=== PATIENT | female | born 1960 | race Caucasian/White ===

== ENCOUNTER 2021-04-10 10:56 | Emergency (ER) | payer BC, SELFPAY ==
--- NOTE | ~2021-04-10 | XR_ITS ---
EXAMINATION: XR chest 2V DATE: 04/10/2021 11:21 INDICATION: Cough TECHNIQUE: PA and lateral views of the chest are obtained. COMPARISON: 05/11/2019 FINDINGS: The lungs are free of acute opacities. There is no pleural effusion or pneumothorax. The ca rdiomediastinal silhouette is normal. There is severe thoracic spondylosis. Surgical clips are noted in the left axilla. IMPRESSION: 1. No acute cardiopulmonary abnormality. Reviewed, dictated and finalized at location B.
[2021-04-10 11:04] VITALS: BP 152/79; PULSE 79; RESP 16; TEMP 36.4; O2SAT 97
--- NOTE | 2021-04-10 11:06 | ED.URI ---
HPI - URI/Sore Throat General Chief Complaint: Upper Respiratory Infection Stated Complaint: body aches/cough/runny nose/fatigue Time Seen by Provider: 04/10/21 11:06 Source: patient and RN notes reviewed Mode of arrival: ambulatory Limitations: no limitations History of Present Illness HPI Narrative: 60-year-old female with history of diabetes, COPD presents with concern for 3-week history of cough, nasal congestion, body aches, fatigue. Reports productive cough with clear and sometimes yellow sputum. She reports she has had a negative Covid test. She reports conversational shortness of breath. She denies fever. Reports taking multiple [id number] medication without relief. MD elicited complaint: cough Related Data Home Medications Medication Instructions Recorded Confirmed atorvastatin 20 mg DAILY 05/11/19 04/10/21 glimepiride 2 mg DAILY 05/11/19 04/10/21 sitagliptin [Januvia] 100 mg DAILY 05/11/19 04/10/21 venlafaxine 150 mg PO DAILY 05/11/19 04/10/21 Allergies Allergy/AdvReac Type Severity Reaction Status Date / Time No Known Allergies Allergy Unverified 07/10/14 00:14 Review of Systems Review of Systems: CONSTITUTIONAL: Reports fatigue, malaise sweats. Denies fever. EYES: Denies visual changes, redness, or discharge. ENT: Reports rhinorrhea, congestion, sinus pain. Denies otalgia and sore throat. CARDIOVASCULAR: Denies chest pain, palpitations, or edema. RESPIRATORY: Reports cough, dyspnea. GASTROINTESTINAL: Denies abdominal pain, nausea, vomiting, diarrhea SKIN: Denies rash or itching. MUSCULOSKELETAL: Reports myalgia. NEUROLOGIC: Denies headache. All systems reviewed & are unremarkable except as noted in HPI and below PMFSH Comments At time of signature, agree with nursing past medical, surgical, social and family history. There is no relevant family history pertinent to the presenting complaint Exam Narrative: GENERAL: Well-appearing, well-nourished, and in no acute distress. HEAD: Normocephalic EYES: PERRLA, conjunctivae clear ENT: Nares clear, turbinates edematous and erythematous, clear discharge. Mucous membranes moist. TM pearly harrison with sharp light reflex bilaterally; no tragal tenderness. Oropharynx not erythematous without lesions. Tonsils not enlarged and without exudate, no drooling, no hoarseness, no trismus, uvula midline. NECK: Supple. No lymphadenopathy CHEST: Clear to auscultation, breath sounds equal, aeration fair, scattered mild wheeze. No rhonchi, rales, or stridor. No respiratory distress, speaks in full sentences. HEART: Regular rate and rhythm. No murmur heard. SKIN: Warm, dry, no rash. NEURO: Alert and oriented x3. PSYCH: Normal mood and affect Course Course Emergency Course: Patient is aware of diagnosis, understands and agrees to treatment plan. Anticipatory guidance given. Patient agrees to follow-up as directed and is aware of reasons to seek care at the emergency department. Portions of this record may have been created with voice recognition software Vital Signs Vital signs: Vital Signs Temperature 97.5 F L 04/10/21 11:04 Pulse Rate 79 04/10/21 11:04 Respiratory Rate 16 04/10/21 11:04 Blood Pressure 152/79 H 04/10/21 11:04 Pulse Oximetry 97 04/10/21 11:04 Temperature 97.5 F L 04/10/21 11:04 Pulse Rate 79 04/10/21 11:04 Respiratory Rate 16 04/10/21 11:04 Blood Pressure 152/79 H 04/10/21 11:04 Pulse Oximetry 97 04/10/21 11:04 Reviewed. MDM - URI/Sore Throat MDM Narrative Medical decision making narrative: Differential diagnosis considered: Whelan virus, strep pharyngitis, allergic rhinitis, upper respiratory tract infection, sinusitis, rhinosinusitis, nasopharyngitis. viral pharyngitis, otitis media, otitis externa, pneumonia, bronchitis, viral cough syndrome, viral syndrome, and influenza. Exam findings show no acute concerns or changes; patient is non-toxic appearing and is in no distress. Patient is appropriate for outpatient
== END 2021-04-10 11:38 | disposition home or self-care (01) ==
PROVIDERS: Emergency Provider Nurse Practitioner; PCP Internal Medicine
DX: J32.9 Chronic sinusitis, unspecified (principal); J40 Bronchitis, not specified as acute or chronic; I25.10 Atherosclerotic heart disease of native coronary artery without angina pectoris; E78.00 Pure hypercholesterolemia, unspecified; I10 Essential (primary) hypertension
CPT/HCPCS: 71046; 99213; G0463

== ENCOUNTER 2021-07-06 09:42 | Emergency (ER) | payer OTHER, BC, SELFPAY ==
--- NOTE | ~2021-07-06 | XR_ITS ---
EXAMINATION: XR wrist RT min 3V DATE: 07/06/2021 09:58 INDICATION: Right wrist pain. TECHNIQUE: 4 views of right wrist were obtained. COMPARISON: None. FINDINGS: Bone alignment is normal. No fracture. There is mild osteoarthritis of triscaphe joint, fir st carpometacarpal joint, first metacarpophalangeal joint, and some of the interphalangeal joints. Th ere are loose bodies in the volar aspect of the radiocarpal compartment. There is a periarticular alexandra cification at third metacarpophalangeal joint. IMPRESSION: 1. Mild polyarticular osteoarthritis. 2. Loose bodies in the volar aspect of the radiocarpal compartment. Reviewed, dictated and finalized at location A. UNLOADER
[2021-07-06 09:48] VITALS: BP 137/73; PULSE 80; RESP 16; TEMP 36.1; O2SAT 100
--- NOTE | 2021-07-06 10:16 | ED.UPPEXIN ---
HPI - Extremity Injury (Upper) General Chief Complaint: Extremity Injury, Upper Stated Complaint: wrist inj Time Seen by Provider: 07/06/21 09:54 Source: patient Mode of arrival: ambulatory Limitations: no limitations History of Present Illness HPI narrative: This is a 61 year old female that presents to the ER for right wrist pain x 3 days. 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 Since she has had pain in the area. Also notes swelling. Reports today she started on note some redness to the area as well. Reports decreased ROM due to pain. Denies numbness. Related Data Home Medications Medication Instructions Recorded Confirmed atorvastatin 20 mg DAILY 05/11/19 04/10/21 glimepiride 2 mg DAILY 05/11/19 04/10/21 sitagliptin [Januvia] 100 mg DAILY 05/11/19 04/10/21 venlafaxine 150 mg PO DAILY 05/11/19 04/10/21 Allergies Allergy/AdvReac Type Severity Reaction Status Date / Time No Known Allergies Allergy Unverified 07/10/14 00:14 Review of Systems Review of Systems: CONSTITUTIONAL: Denies fever SKIN: Reports redness MUSCULOSKELETAL: Reports joint pain, and myalgia. NEUROLOGIC: Denies numbness All systems reviewed & are unremarkable except as noted in HPI and below PMFSH Past Medical History Medical History (Updated 07/06/21 @ 12:59 by Emmy Keenan PA-C) Diabetes Dyslipidemia HTN (hypertension) Social History Social History (Updated 07/06/21 @ 10:19 by Emmy Keenan PA-C) Substance use: never Exam Narrative: GENERAL: Well-appearing, well-nourished, and in no acute distress. HEAD: Normocephalic, atraumatic. EYES: EOMI. CHEST: No respiratory distress. HEART: Regular rate EXTREMITIES: Decreased active ROM in the right wrist due to pain. No edema. Mild redness noted to the volar aspect of the wrist. Normal radial pulses. Normal sensation SKIN: Warm, dry, no rash. NEURO: No focal deficits. Alert and oriented x3. PSYCH: Normal mood and affect Course Consultations Consultation #1: Spoke with Dr. Connolly about patient work-up. Will be treated as wrist sprain with a possible inflammatory arthritis such as gout. Date: 07/06/21 Time: 12:36 Vital Signs Vital signs: Vital Signs Temperature 97 F L 07/06/21 09:48 Pulse Rate 80 07/06/21 09:48 Respiratory Rate 16 07/06/21 09:48 Blood Pressure 137/73 07/06/21 09:48 Pulse Oximetry 100 07/06/21 09:48 Temperature 97 F L 07/06/21 09:48 Pulse Rate 78 07/06/21 11:46 Respiratory Rate 16 07/06/21 11:46 Blood Pressure 134/75 07/06/21 11:46 Pulse Oximetry 100 07/06/21 11:46 MDM - Extremity Injury (Upper) MDM Narrative Medical decision making narrative: Patient presents to the emergency department for right wrist pain after an injury a couple of days ago. She is afebrile and nontoxic-appearing. She is neurovascularly intact. CBC is without leukocytosis. ESR is not elevated. CRP is elevated to 4.8. 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 Shows loose bodies in the volar aspect of the radiocarpal compartment. Patient was updated on case findings. Spoke with Dr. Connolly about patient work-up. Will be treated as wrist sprain with a possible inflammatory arthritis such as gout. Patient will be started on anti-inflammatories and colchicine. He will follow up in clinic. Patient is stable and felt appropriate for further outpatient evaluation. There is no evidence for septic joint today. Patient was given warnings to return to the ER Lab Data Attestation: I reviewed the patient's lab results. Result diagrams: 07/06/21 10:24 07/06/21 10:24 Labs: Lab Results 07/06/21 07/06/21 Range/Units 10:24 10:24 WBC 9.5 (4.5-10.0) K/mm3 RBC 5.05 (4.2-5.4) M/mm3 Hgb 15.3 H (12.0-15.0) g/dL Hct 44.5 (37.0-47.0) % MCV 88.1 (80-100) fl MCH 30.3 (26-34) pg MCHC 34.4 (32-36) g/dl RDW 14.0 (11.5-14.5) % Plt
[2021-07-06] MEDS: traMADol HCL (*CRX) 50 MG TABLET PO (10:18)
[2021-07-06 10:33] LABS: Basophils Percent Auto 0.3 % (0.2-1.2); Eosinophils Absolute Auto 0.1 K/mm3 (0-0.3); Eosinophils Percent Auto 0.5 % (0-4.4); Hematocrit 44.5 % (37.0-47.0); Hemoglobin 15.3 g/dL (12.0-15.0); Immature Granulocyte Absolute 0.04 K/mm3 (0.00-0.031); Immature Granulocyte Percent A 0.4 % (0-0.5); Lymphocytes Absolute Auto 1.71 K/mm3 (0.9-3.2); Lymphocytes Percent Auto 18.1 % (18.3-44.2); Mean Corpuscular HGB Conc 34.4 g/dl (32-36); Mean Corpuscular Hemoglobin 30.3 pg (26-34); Mean Corpuscular Volume 88.1 fl (80-100); Mean Platelet Volume 11.4 fl (7.4-10.4); Monocytes Absolute Auto 0.8 K/mm3 (0.1-0.6); Monocytes Percent Auto 8.1 % (2.6-8.5); Neutrophils Absolute Auto 6.9 K/mm3 (1.3-6.7); Neutrophils Percent Auto 72.6 % (45.5-73.1); Platelet Count Result 189 k/mm3 (150-375); Red Blood Count 5.05 M/mm3 (4.2-5.4); White Blood Count 9.5 K/mm3 (4.5-10.0)
[2021-07-06 10:49] LABS: Anion Gap 8 mmol/L (8-16); Blood Urea Nitrogen 19 mg/dL (7-17); CRP 4.8 mg/dL (<1.0); Calcium 9.5 mg/dL (8.4-10.2); Carbon Dioxide 22 mmol/L (22-30); Chloride 106 mmol/L (98-107); Estimated CRCL calculation 79 ml/min; Estimated Glomerular Filt Rate > 60; Glucose 278 mg/dL (65-110); Sodium 136 mmol/L (137-145); Uric Acid 4.5 mg/dL (2.5-7.5)
[2021-07-06 11:46] VITALS: BP 134/75; PULSE 78; RESP 16; O2SAT 100
--- NOTE | 2021-07-06 11:46 | PC.NURSE ---
Pt waiting for results from provider.
[2021-07-06 12:00] LABS: Erythrocyte Sedimentation Rate 17 mm/hr (0-20)
--- NOTE | 2021-07-06 12:09 | PC.NURSE ---
TAE campbell updated on lab results.
--- NOTE | 2021-07-06 12:15 | PC.NURSE ---
Provider at bedside.
[2021-07-06] MEDS: KETOROLAC (*BKC) 60 MG/2 ML VIAL IM (12:36)
--- NOTE | 2021-07-06 13:03 | PC.NURSE ---
Awaiting meds from pharmacy to ar.
[2021-07-06 13:16] VITALS: BP 153/100; PULSE 82; RESP 17; O2SAT 92
[2021-07-06] MEDS: COLCHICINE 0.6 MG TABLET 1.2 MG PO (13:19)
[2021-07-06 13:21] VITALS: BP 149/78; PULSE 75; RESP 17; O2SAT 100
== END 2021-07-06 13:22 | disposition home or self-care (01) ==
PROVIDERS: Physician Assistant; Emergency Provider Family Medicine; PCP Internal Medicine
DX: S63.501A Unspecified sprain of right wrist, initial encounter (principal); S66.911A Strain of unspecified muscle, fascia and tendon at wrist and hand level, right hand, initial encounter; M19.031 Primary osteoarthritis, right wrist; E78.5 Hyperlipidemia, unspecified; E11.9 Type 2 diabetes mellitus without complications; I10 Essential (primary) hypertension; Z79.84 Long term (current) use of oral hypoglycemic drugs; X50.9XXA Other and unspecified overexertion or strenuous movements or postures, initial encounter
CPT/HCPCS: 36415; 73110; 80048; 84550; 85025; 85652; 86140; 96372; 99283; A9270; J1885

== ENCOUNTER 2022-12-26 17:04 | Emergency (ER) | payer BC, SELFPAY ==
--- NOTE | ~2022-12-26 | XR_ITS ---
XR wrist LT min 3V DATE: 12/26/2022 18:01 INDICATION: Pain, swelling. No known injury. TECHNIQUE: 4 views COMPARISON: None FINDINGS: There is osteopenia. No fracture, dislocation, periosteal reaction or bone destruction is detected. IMPRESSION: No fracture or dislocation Reviewed, dictated and finalized at location A. IMPRESSION: No fracture or dislocation
[2022-12-26 17:08] VITALS: BP 133/74; PULSE 68; RESP 18; TEMP 36.5; O2SAT 96
--- NOTE | 2022-12-26 18:48 | ED.UPPEXIN ---
HPI - Extremity Injury (Upper) General Chief Complaint: Extremity Injury, Upper Stated Complaint: left wrist pain Time Seen by Provider: 12/26/22 17:49 Source: patient Mode of arrival: ambulatory Limitations: no limitations History of Present Illness HPI narrative: Patient is a 62 y/o female who presents to the ED with c/o L wrist pain. Patient reports having pain in her left wrist, worst on the ventral surface, for the last 2-3 days. She states pain became worse last night into today. Worse when she woke up this morning. She states she has had similar pain in the past, but not this severe. She has not tried anything for the pain. She denies any injury. She has noticed some swelling to the ventral surface of her wrist. 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 Denies any numbness, tingling, paresthesias. Related Data Home Medications Medication Instructions Recorded Confirmed atorvastatin 20 mg tablet 20 mg DAILY 05/11/19 04/10/21 glimepiride 1 mg tablet 2 mg DAILY 05/11/19 04/10/21 sitagliptin phosphate 100 mg 100 mg DAILY 05/11/19 04/10/21 tablet (Januvia) venlafaxine 150 mg 150 mg PO DAILY 05/11/19 04/10/21 capsule,extended release 24 hr Allergies Allergy/AdvReac Type Severity Reaction Status Date / Time No Known Allergies Allergy Verified 12/26/22 17:05 Review of Systems Review of Systems: CONSTITUTIONAL: Denies fever, chills, or sweats. MUSCULOSKELETAL: See HPI. NEUROLOGIC: See HPI. All systems reviewed & are unremarkable except as noted in HPI and below PMFSH Past Medical History Medical History (Updated 12/26/22 @ 18:49 by Preethi Colbert PA-C) Diabetes Dyslipidemia HTN (hypertension) Social History Social History (Updated 07/06/21 @ 10:19 by Emmy Keenan PA-C) Substance use: never Exam Narrative: GENERAL: Appears older than stated age, obese with BMI of 34.9, non-toxic, in no acute distress. HEAD: Normocephalic, atraumatic. NECK: Supple. No adenopathy, no masses. RESPIRATORY: Airway patent, respirations nonlabored. CARDIOVASCULAR: Regular rate and rhythm without murmurs, rubs, or gallops. Radial pulses 2+ and equal bilaterally. MUSCULOSKELETAL: Limited range of motion of left wrist due to pain. Tenderness to palpation along distal radius and ulna on ventral surface. Increased tenderness with carpal compression testing. Unable to perform Tinel's testing due to pain. Sensation intact. No paresthesias. SKIN: Warm, dry, normal color. No rashes. NEURO: A&O X3. Speech clear. Cranial nerves II-XII grossly intact. Steady gait. No ataxic movements. PSYCHIATRIC: Appropriate mood and affect. Normal interaction. Course Vital Signs Vital signs: Vital Signs Temperature 97.7 F 12/26/22 17:08 Pulse Rate 68 12/26/22 17:08 Respiratory Rate 18 12/26/22 17:08 Blood Pressure 133/74 12/26/22 17:08 Pulse Oximetry 96 12/26/22 17:08 Oxygen Delivery Room Air 12/26/22 17:08 Temperature 97.7 F 12/26/22 17:08 Pulse Rate 68 12/26/22 17:08 Respiratory Rate 18 12/26/22 17:08 Blood Pressure 133/74 12/26/22 17:08 Pulse Oximetry 96 12/26/22 17:08 Oxygen Delivery Room Air 12/26/22 17:08 MDM - Extremity Injury (Upper) MDM Narrative Medical decision making narrative: Patient presented to ED with several day history of atraumatic left wrist pain. Vitals stable. No signs of neurovascular compromise. Sensation intact. No signs of compartment syndrome. X-ray of left wrist negative for any acute abnormality. Exam consistent with carpal tunnel syndrome. Discussed diagnosis, obtaining cock-up wrist splint, and utilizing anti-inflammatories. Patient had not tried anything for pain prior to arrival. Will provide patient with orthopedic information for follow-up if needed. Patient agrees with plan. Given return precautions. Discharged in stable condition. Differential Diagnosis Differential diagnosis: Likely sprain and strain of wrist, fracture of wr
[2022-12-26] MEDS: KETOROLAC 30 MG/ML VIAL (*BKC) IM (19:01)
[2022-12-26] MEDS: ACETAMINOPHEN 325 MG TABLET 650 MG PO (19:02)
== END 2022-12-26 19:08 | disposition home or self-care (01) ==
PROVIDERS: Emergency Provider Physician Assistant; PCP Internal Medicine
DX: G56.02 Carpal tunnel syndrome, left upper limb (principal); I10 Essential (primary) hypertension; E11.9 Type 2 diabetes mellitus without complications; E78.5 Hyperlipidemia, unspecified; Z79.84 Long term (current) use of oral hypoglycemic drugs
CPT/HCPCS: 73110; 96372; 99283; A9270; J1885

== ENCOUNTER 2023-04-11 14:07 | Outpatient (CLI) | payer BC, SELFPAY ==
[2023-04-11 20:07] LABS: Basophils Percent Auto 0.5 % (0.2-1.2); Eosinophils Absolute Auto 0.1 K/mm3 (0-0.3); Eosinophils Percent Auto 0.8 % (0-4.4); Hematocrit 47.4 % (37.0-47.0); Hemoglobin 15.9 g/dL (12.0-15.0); Immature Granulocyte Absolute 0.03 K/mm3 (0.00-0.031); Immature Granulocyte Percent A 0.3 % (0-0.5); Lymphocytes Absolute Auto 2.51 K/mm3 (0.9-3.2); Lymphocytes Percent Auto 28.7 % (18.3-44.2); Mean Corpuscular HGB Conc 33.5 g/dl (32-36); Mean Corpuscular Volume 89.4 fl (80-100); Mean Platelet Volume 11.4 fl (7.4-10.4); Monocytes Absolute Auto 0.7 K/mm3 (0.1-0.6); Monocytes Percent Auto 7.9 % (2.6-8.5); Neutrophils Absolute Auto 5.4 K/mm3 (1.3-6.7); Neutrophils Percent Auto 61.8 % (45.5-73.1); Platelet Count Result 183 k/mm3 (150-375); Red Cell Distribution Width 12.8 % (11.5-14.5); White Blood Count 8.7 K/mm3 (4.5-10.0)
[2023-04-11 21:06] LABS: Alanine Aminotransferase 26 U/L (6-35); Albumin Level 4.5 g/dL (3.5-5.1); Alkaline Phosphatase 83 U/L (38-126); Anion Gap 9 mmol/L (8-16); Aspartate Amino Transferase 36 U/L (14-36); Bilirubin,Total 0.7 mg/dL (0.2-1.3); Blood Urea Nitrogen 13 mg/dL (7-17); Calcium 9.7 mg/dL (8.4-10.2); Carbon Dioxide 28 mmol/L (22-30); Chloride 100 mmol/L (98-107); Cholesterol 315 mg/dL (0-200); Estimated Glomerular Filt Rate > 60; Glucose 241 mg/dL (65-110); HDL Direct 47 mg/dL; Potassium 3.9 mmol/L (3.4-5.0); Sodium 137 mmol/L (137-145); Triglycerides 305 mg/dL (<150)
[2023-04-11 21:17] LABS: LDL Cholesterol Direct 186 mg/dL
[2023-04-11 21:52] LABS: Hemoglobin A1C 11.3 % (<5.7)
[2023-04-11 22:30] LABS: MALB Creatinine Ratio 750.3 mg/g (0-30); Microalbumin Urine Random 877.9 mg/L (0-16.7)
[2023-04-13 13:04] LABS: Apolipoprotein B 180 mg/dL (<90)
== END 2023-04-11 14:08 | disposition home or self-care (01) ==
LOC: ANHGOSHLAB 14:08
PROVIDERS: PCP Internal Medicine; Visit Provider Internal Medicine
DX: E11.9 Type 2 diabetes mellitus without complications (principal)
CPT/HCPCS: 36415; 80053; 80061; 82043; 82172; 83036; 85025

== ENCOUNTER 2023-05-02 08:30 | Outpatient (RCR) | payer BC, SELFPAY ==
[2023-04-22 15:04] VITALS: BMI 34.7
[2023-05-02 08:30] VITALS: BMI 33.9
[2023-05-02 09:50] VITALS: BMI 33.9
== END 2023-07-11 08:53 | disposition home or self-care (01) ==
LOC: ANHDMC 08:30
PROVIDERS: PCP Internal Medicine; Visit Provider Internal Medicine
DX: E11.9 Type 2 diabetes mellitus without complications (principal); Z71.3 Dietary counseling and surveillance
CPT/HCPCS: 97802; 97803

== ENCOUNTER 2023-07-18 12:33 | Outpatient (CLI) | payer BC, SELFPAY ==
[2023-07-18 20:46] LABS: Alanine Aminotransferase 23 U/L (6-35); Albumin Level 4.6 g/dL (3.5-5.1); Alkaline Phosphatase 68 U/L (38-126); Anion Gap 7 mmol/L (8-16); Aspartate Amino Transferase 35 U/L (14-36); Bilirubin,Total 0.4 mg/dL (0.2-1.3); Blood Urea Nitrogen 16 mg/dL (7-17); Calcium 9.8 mg/dL (8.4-10.2); Carbon Dioxide 30 mmol/L (22-30); Chloride 103 mmol/L (98-107); Estimated Glomerular Filt Rate > 60; Glucose 102 mg/dL (65-110); Potassium 3.8 mmol/L (3.4-5.0); Sodium 140 mmol/L (137-145)
[2023-07-18 22:03] LABS: Hemoglobin A1C 7.1 % (<5.7)
== END 2023-07-18 12:34 | disposition home or self-care (01) ==
LOC: ANHGOSHLAB 12:35
PROVIDERS: PCP Internal Medicine; Visit Provider Internal Medicine
DX: G25.81 Restless legs syndrome (principal); E11.9 Type 2 diabetes mellitus without complications
CPT/HCPCS: 36415; 80053; 82728; 83036

== ENCOUNTER 2023-10-24 11:05 | Outpatient (CLI) | payer BC, SELFPAY ==
[2023-10-24 13:21] LABS: Basophils Percent Auto 0.4 % (0.2-1.2); Eosinophils Absolute Auto 0.1 K/mm3 (0-0.3); Eosinophils Percent Auto 0.8 % (0-4.4); Hematocrit 41.9 % (37.0-47.0); Hemoglobin 13.9 g/dL (12.0-15.0); Immature Granulocyte Absolute 0.07 K/mm3 (0.00-0.031); Immature Granulocyte Percent A 0.8 % (0-0.5); Lymphocytes Absolute Auto 2.52 K/mm3 (0.9-3.2); Lymphocytes Percent Auto 30.4 % (18.3-44.2); Mean Corpuscular HGB Conc 33.2 g/dl (32-36); Mean Corpuscular Hemoglobin 30.6 pg (26-34); Mean Corpuscular Volume 92.3 fl (80-100); Mean Platelet Volume 11.7 fl (7.4-10.4); Monocytes Absolute Auto 0.6 K/mm3 (0.1-0.6); Monocytes Percent Auto 6.9 % (2.6-8.5); Neutrophils Percent Auto 60.7 % (45.5-73.1); Platelet Count Result 167 k/mm3 (150-375); Red Blood Count 4.54 M/mm3 (4.2-5.4); Red Cell Distribution Width 13.7 % (11.5-14.5); White Blood Count 8.3 K/mm3 (4.5-10.0)
[2023-10-24 13:36] LABS: Alanine Aminotransferase 18 U/L (6-35); Albumin Level 4.5 g/dL (3.5-5.1); Alkaline Phosphatase 59 U/L (38-126); Anion Gap 5 mmol/L (4-12); Aspartate Amino Transferase 38 U/L (14-36); Bilirubin,Total 0.4 mg/dL (0.2-1.3); Blood Urea Nitrogen 17 mg/dL (7-17); Calcium 9.4 mg/dL (8.4-10.2); Carbon Dioxide 32 mmol/L (22-30); Chloride 105 mmol/L (98-107); Cholesterol 202 mg/dL (0-200); Estimated Glomerular Filt Rate > 60; Glucose 140 mg/dL (65-110); HDL Direct 47 mg/dL; Potassium 4.3 mmol/L (3.4-5.0); Sodium 142 mmol/L (137-145); Triglycerides 180 mg/dL (<150)
[2023-10-24 13:47] LABS: LDL Cholesterol Direct 127 mg/dL
[2023-10-24 14:04] LABS: Creatinine Urine 128.2 mg/dL
[2023-10-24 14:12] LABS: MALB Creatinine Ratio 105.1 mg/g (0-30); Microalbumin Urine Random 134.7 mg/L (0-16.7)
== END 2023-10-24 11:06 | disposition home or self-care (01) ==
PROVIDERS: PCP Internal Medicine; Visit Provider Internal Medicine
DX: E78.5 Hyperlipidemia, unspecified (principal); E11.65 Type 2 diabetes mellitus with hyperglycemia
CPT/HCPCS: 36415; 80053; 80061; 82043; 83036; 85025

== ENCOUNTER 2024-04-27 11:33 | Outpatient (CLI) | payer BC, SELFPAY ==
[2024-04-27 18:56] LABS: Basophils Percent Auto 0.6 % (0.2-1.2); Eosinophils Absolute Auto 0.1 K/mm3 (0-0.3); Eosinophils Percent Auto 1.3 % (0-4.4); Hematocrit 41.5 % (37.0-47.0); Hemoglobin 13.5 g/dL (12.0-15.0); Immature Granulocyte Absolute 0.02 K/mm3 (0.00-0.031); Immature Granulocyte Percent A 0.3 % (0-0.5); Lymphocytes Absolute Auto 2.19 K/mm3 (0.9-3.2); Lymphocytes Percent Auto 35.5 % (18.3-44.2); Mean Corpuscular HGB Conc 32.5 g/dl (32-36); Mean Corpuscular Hemoglobin 30.1 pg (26-34); Mean Corpuscular Volume 92.6 fl (80-100); Mean Platelet Volume 11.2 fl (7.4-10.4); Monocytes Absolute Auto 0.6 K/mm3 (0.1-0.6); Monocytes Percent Auto 10.4 % (2.6-8.5); Neutrophils Absolute Auto 3.2 K/mm3 (1.3-6.7); Neutrophils Percent Auto 51.9 % (45.5-73.1); Platelet Count Result 190 k/mm3 (150-375); Red Blood Count 4.48 M/mm3 (4.2-5.4); Red Cell Distribution Width 13.3 % (11.5-14.5); White Blood Count 6.2 K/mm3 (4.5-10.0)
[2024-04-27 19:00] LABS: Alanine Aminotransferase 22 U/L (6-35); Albumin Level 4.4 g/dL (3.5-5.1); Alkaline Phosphatase 69 U/L (38-126); Anion Gap 3 mmol/L (4-12); Aspartate Amino Transferase 28 U/L (14-36); Bilirubin,Total 0.6 mg/dL (0.2-1.3); Blood Urea Nitrogen 16 mg/dL (7-17); Calcium 9.3 mg/dL (8.4-10.2); Carbon Dioxide 31 mmol/L (22-30); Chloride 105 mmol/L (98-107); Cholesterol 235 mg/dL (0-200); Estimated Glomerular Filt Rate > 60; Glucose 115 mg/dL (65-110); HDL Direct 49 mg/dL; Potassium 4.4 mmol/L (3.4-5.0); Sodium 139 mmol/L (137-145); Triglycerides 225 mg/dL (<150)
[2024-04-27 19:11] LABS: LDL Cholesterol Direct 129 mg/dL
[2024-04-27 19:17] LABS: Creatinine Urine 154.4 mg/dL
[2024-04-27 19:21] LABS: MALB Creatinine Ratio 66.5 mg/g (0-30); Microalbumin Urine Random 102.7 mg/L (0-16.7)
[2024-04-27 19:51] LABS: Hemoglobin A1C 6.9 % (<5.7)
== END 2024-04-27 11:34 | disposition home or self-care (01) ==
LOC: ANHGOSHLAB 11:34
PROVIDERS: PCP Internal Medicine; Visit Provider Internal Medicine
DX: E78.5 Hyperlipidemia, unspecified (principal); E11.9 Type 2 diabetes mellitus without complications; R80.9 Proteinuria, unspecified
CPT/HCPCS: 36415; 80053; 80061; 82043; 82172; 83036; 85025

== ENCOUNTER 2024-09-14 09:12 | Outpatient (CLI) | payer BC, SELFPAY ==
--- NOTE | ~2024-09-14 | MM_ITS ---
EXAMINATION: MM screening cristopher BI w papito HISTORY: Screening TECHNIQUE: Craniocaudal and mediolateral oblique 3-D tomosynthesis images were obtained and synthetic 2-D images were generated. CAD analysis was submitted and interpreted. COMPARISON: No prior mammogram is available for comparison at this institution. BREAST PARENCHYMAL COMPOSITION: Dense: The breasts are heterogeneously dense, which may obscure small masses FINDINGS: There is no evidence of suspicious mass, calcification, or architectural distortion to sugg est malignancy in either breast. There has been no suspicious interval change. IMPRESSION: 1. No mammographic evidence of malignancy. 2. Recommend routine screening mammography in one year. BI-RADS Category 1: Negative Reviewed, dictated and finalized at location A.
--- OUTSIDE RECORDS SUMMARY | 2024-09-14 09:30 | XMS_ITS | Clinical Summary ---
Author Organization [facility] Address [address] [place] [address] Care Team Providers Care [place] Captain Name Role Phone Tiago Leblanc MD Unavailable [phone] Rusty Soares MD PhD Unavailable Rusty Bentley DO Primary Care Provider [phone] Allergies No known active allergies Medications venlafaxine XR (EFFEXOR-XR) 150 mg 24 hr capsuleIndicati ons:Anxiety with Depression Take 1 capsule (150 mg total) by mouth every morning 8 Active glimepiride (AMARYL) 2 mg tabletIndicatio ns:type 2 diabetes mellitus TAKE 1 TABLET (2 MG TOTAL) BY MOUTH 2 (TWO) TIMES A DAY 180 tablet 1 1 Active atorvastatin (LIPITOR) 20 mg tablet TAKE 1 TABLET BY MOUTH EVERY DAY 90 tablet 1 1 Active Additional Information Patient taking differently: Every morning, Reported on 07/17/2024 bisacodyl EC (DULCOLAX EC) 5 mg EC tabletIndicatio ns:constipation Take 2 tablets with 8oz glass of water as directed per prep instructions. 2 tablet 1 Active albuterol 2.5 mg /3 mL (0.083 %) nebulizer solution 1 Active metFORMIN (GLUCOPHAGE) 1,000 mg tablet TAKE 1 TABLET BY MOUTH TWICE A DAY 180 tablet 1 Active Farxiga 10 mg tablet TAKE 1 TABLET BY MOUTH EVERY DAY 90 tablet 2 Active Januvia 100 mg tablet TAKE 1 TABLET BY MOUTH EVERY DAY 90 tablet 1 2 Active albuterol HFA (PROVENTIL HFA,VENTOLIN HFA,PROAIR HFA) 90 mcg/actuation inhaler INHALE 2 PUFFS EVERY 4 HOURS NEEDED FOR WHEEZING 6.7 each 3 2 Active clindamycin (CLEOCIN T) 1 % lotion Apply topically 2 (two) times a day To affected area in the groin 60 mL 2 3 Active losartan (COZAAR) 25 mg tablet Take 1 tablet (25 mg total) by mouth daily 3 Active rosuvastatin (CRESTOR) 10 mg tablet Take 1 tablet (10 mg total) by mouth daily 3 Active Trulicity 3 mg/0.5 mL pen injector INJECT THE CONTENTS OF 1 PEN UNDER THE SKIN ONCE WEEKLY 4 Active Active Problems Problem Noted Date Diagnosed Date Family history of colon cancer 01/30/2021 Overview (01/30/2021): Added automatically from request for surgery [id number] Melanoma of back 12/20/2020 Skin lesion 08/25/2020 Essential hypertension 06/23/2020 Assessment & Plan (06/23/2020 2:46 PM DEER FARMER): Blood pressure at time Type 2 diabetes mellitus wit hout complication, without long-term current use of insulin 03/17/2020 Assessment & Plan (06/23/2020 2:46 PM DEER FARMER): Seems to lost 10 lb. A1c 10.5. Will add Farxiga 5 mg daily Hyperlipidemia 03/17/2020 Assessment & Plan (06/23/2020 2:46 PM DEER FARMER): Lipid reviewed continue present Rx Pain in the coccyx 10/18/2016 Chronic obstructive pulmonary disease 10/11/2013 Mass of breast 10/11/2013 Encounters Date Type Department Care Team Description 07/18/2024 Telephone [facility] Oncology [address] [place] [address] Calvin Shelby 07/17/2024 2:00 PM DEER FARMER Office Visit [facility] Oncology [address] [place] [address] Tiago Leblanc MD Melanoma of back (HCC) 07/17/2024 1:00 PM DEER FARMER Lab [facility] [address] [place] [address] Melanoma of back (HCC) 07/17/2024 1:00 PM DEER FARMER Lab [facility] Oncology [address] [place] [address] Melanoma of back (HCC) 07/17/2024 10:54 AM DEER FARMER - 07/17/2024 11:59 PM DEER FARMER Hospital Encounter [facility] Imaging [address] [place] [address] Melanoma of back (HCC) Discharge Disposition: Discharge to home or self care from Last 3 Months Immunizations Immunization Administration Dates Next Due Influenza, Quadrivalent, Spl it, Preservative Free, Intramuscular 02/17/2020,02/03/2019 Influenza, Trivalent, Preser vative Free, Intramuscular 03/20/2017,03/20/2016,03/22/2015 Influenza, Unspecified 07/15/2014 Pneumococcal Conjugate PCV 13 02/17/2020 Pneumococcal Polysaccharide PPV23 02/03/2019,02/2015 Surgical History Surgery Date Site/Laterality Comments CERVIX SURGERY after water skiing accident 1981 SKIN BIOPSY 12/01/2020 Left left lower back MELANOMA RESECTION 01/16/2021 Left Left lower back SENTINEL LYMPH NODE BIOPSY 01/16/2021 Medical History Medical History Date Comments Depression Suicide attempt (HCC) Hx Other Medical 1981 water skiing ac cident Urinary incontinence Irritable bowel syndrome (IBS) Anemia Anxiety Arthritis Diabetes mellitus (HCC) Emphysema of lung (HCC) Melanoma of back (HCC) 12/20/2020 Hypertension Family History Medical History Relation Name Comments Breast cancer Cousin Alcohol abuse Father Arthritis Mother Blood Clot Mother Colon cancer Mother Emphysema Mother Hypertension Mother Colon cancer Mother's Sister 1 Breast cancer Mother's Sister 2 Scoliosis Sister Diabetes Son Relation Name Status Comments Cousin Father Mother Mother's Sister 1 Mother's Sister 2 Sister Son Social History Tobacco Use Types Packs/Day Years Used Date Smoking Tobacco: Former Cigarettes 0.5 33.3 S tarted: 1991 Smokeless Tobacco: Never Tobacco Cessation:Counseling Given: Not Answered Comments:Smoking History Packs/day: 0 Packs Alcohol Use Standard Drinks/Week Comments Yes 0 (1 standard drink = 0.6 oz pur e alcohol) AUDIT-C Answer Date Recorded Q1: How often do you have a drink containing alc ohol? Monthly or less 04/21/2021 Q2: How many drinks containi ng alcohol do you have on a typical day when you are drinking? 1 or 2 04/21/2021 Q3: How often do you have si x or more drinks on one occasion? Never 04/21/2021 Comments No Sex and Gender Information Value Date Recorded Sex Assigned at Not on file Legal Sex Female 2:38 AM DEER FARMER Gender Identity Not on file Sexual Orientation Not on file Obstetrics History Last Filed Vital Signs Vital Sign Reading Time Taken Comments Blood Pressure 127/78 07/17/2024 2:08 PM DEER FARMER Pulse 68 07/17/2024 2:08 PM DEER FARMER Temperature 36.6 C (97.9 F) 07/17/2024 2:08 PM DEER FARMER Respiratory Rate 16 07/17/2024 2:08 PM DEER FARMER Oxygen Saturation 98% 07/17/2024 2:08 PM DEER FARMER Inhaled Oxygen Concentration - - Weight 106.6 kg (235 lb 1.6 oz) 07/17/2024 2:08 PM DEER FARMER Height 167.4 cm (5' 5.91 ) 07/17/2024 2:08 PM CS T Body Mass Index 38.05 07/17/2024 2:08 PM DEER FARMER Plan of Treatment Health Maintenance Due Date Last Done Comments Albumin Creatinine Ratio, Urine 1962 Cervical Cancer Screening 1962 Depression Screening 1962 Hepatitis C Screening 1962 Dilated Eye Exam 1962 Foot Exam 1962 DTaP/Tdap/Td Vaccine (1 - Tdap) 1973 Hepatitis B Screening 1980 Regular Well Visit/Exam 18-64 1980 Zoster Vaccine (1 of 2) 2012 Hemoglobin A1C 09/07/2021 03/09/2021, 11/05, 06/23/2020, Additional history exists Lipid Panel 12/01/2021 12/01/2020, 06/06, 03/17/2020, Additional history exists Breast Cancer Screening-Mammogram 10/26/2023 10/25/2022, 02/23/2021, 01/06/2018, Additional history exists Influenza Vaccine (#1) 2024 , 02/03/2019, 03/20/2017, Additional history exists Pneumococcal vaccine <65 (3 of 3 - PCV20 or PCV21) 02/16/2025 02/17/2020, 02/03/2019, 07/15/2014 eGFR 07/17/2025 07/17/2024, 11/2023, 07/12/2023, Additional history exists Colon Cancer Screening-Colonoscopy 04/21/2031 04/21/2021, 04/19/2016, 08/18/2012 Colon Cancer Screening-CT Colonography Discontinued 04/21/2021, 04/19/2016, 08/18/2012 Colon Cancer Screening-DNA Stool Discontinued 04/21/2021, 04/19/2016, 08/18/2012 Colon Cancer Screening-FIT Discontinued 04/21, 04/19/2016, 08/18/2012 Colon Cancer Screening-Sigmoidoscopy Discontinued 04/21/2021, 04/19/2016, 08/18/2012 Procedures Procedure Name Priority Date/Time Associated Diagnosis Comments EGFR Routine 07/17/2024 12:22 PM DEER FARMER Melanoma of back (HCC) DIFFERENTIAL AUTO Routine 07/17/2024 12:22 PM DEER FARMER Melanoma of back (HCC) COMPREHENSIVE METABOLIC PANEL Routine 07/17/2024 12:22 PM DEER FARMER Melanoma of back (HCC) CBC WITH AUTO DIFFERENTIAL Routine 07/17/2024 12:22 PM DEER FARMER Melanoma of back (HCC) LACTATE DEHYDROGENASE Routine 07/17/2024 12:22 PM DEER FARMER Melanoma of back (HCC) PET/CT FDG SKULL TO THIGH Schedule Routine, Read Routine (OP Routine) 07/17/2024 12:07 PM DEER FARMER Melanoma of back (HCC) SCREENING MAMMOGRAM BILATERAL W YONI Schedule Routine, Read Routine (OP Routine) 10/25/2022 8:36 AM CDT Screening mammogram, encounter for COLONOSCOPY 04/21/2021 1:17 PM DEER FARMER POCT HEMOGLOBIN A1C Routine 03/09/2021 1 :58 PM CDT Type 2 diabetes mellitus without complication, without long-term current use of insulin (HCC) Hyperlipidemia, unspecified hyperlipidemia type Essential hypertension POCT LIPID PANEL Routine 12/01/2020 2:40 PM CDT Hyperlipidemia, unspecified hyperlipidemia type from Last 3 Months or Most Recently Relevant to Health Maintenance Results * eGFR (07/17/2024 12:22 PM DEER FARMER) eGFR 83 >=60 mL/min/1. 73 m2 Comment: Interpretive Data Reference Interval Normal >/= 90 mL/min/1.73m2 Mildly decreased* 60 - 89 mL/min/1.73m2 Mildly to moderately decreased 45 - 59 mL/min/1.73m2 Moderately to severely decreased 30 - 44 mL/min/1.73m2 Severely decreased 15 - 29 mL/min/1.73m2 Kidney Failure < 15 mL/min/1.73m2 *Relative to young adult level Estimated glomerular filtration rate is determined by the 2020 CKD-EPI equation recommended by the National Kidney Foundation (A Unifying Approach to GFR Estimation: Recommendations of the NKF-ASK Task Force on Reassessing the Inclusion of Race in Diagnosing Kidney Disease, JASN 2020). The CKD-EPI equation should not be used for patients with unstable renal function and has not been validated in children and those over 70. Current interpretive data was last reviewed 2021. Testing performed by: [facility], [address] [place] [address] Blood 07/17/2024 12:2 2 PM DEER FARMER 07/17/2024 12:31 PM DEER FARMER us Angel Kelley [facility]OWER [employer]PER LAB BLOOD ORDERABLES Leslye blank Result [facility] [id number] [facility]. Department of Laboratories [place], [place] [id number] * Differential, auto (07/17/2024 12:22 PM DEER FARMER) Neutrophil abs 4.4 1.5 - 6.5 K/cumm Comment:Testing performed by : [facility] 2, [address] [place] [address] Imm gran abs 0.0 0.0 - 0.1 K/cumm [facility]ER [facility] Comment:Testing performed by : [facility] 2, [address] [place] [address] Lymphocyte abs 1.8 0.8 - 3.3 K/cumm [facility]ER [facility] Comment:Testing performed by : [facility] 2, [address] [place] [address] Monocyte abs 0.6 0.2 - 0.8 K/cumm CERNER [facility] Comment:Testing performed by : [facility] 2, [address] [place] [address] Eosinophil abs 0.1 0.0 - 0.5 K/cumm CERNER [facility] Comment:Testing performed by : [facility] 2, [address] [place] [address] Basophil abs 0.0 0.0 - 0.1 K/cumm CERNER [facility] Comment:Testing performed by : [facility] 2, [address] [place] [address] Neutrophil pct 63.7 % CERNER [facility] Comment: Interpretive Data Percent cell count reference ranges are not reported, since discordance with absolute values may lead to misinterpretation of CBC data. Current Interpretive Data was last revised on 2017. Testing performed by: [facility] 2, [address] [place] [address] Imm gran pct 0.4 % [facility]ER [facility] Comment: Interpretive Data Percent cell count reference ranges are not reported, since discordance with absolute values may lead to misinterpretation of CBC data. Current Interpretive Data was last revised on 2017. Testing performed by: [facility], [facility], [address] [place] [address] Lymphocyte pct 26.0 % [facility] Comment: Interpretive Data Percent cell count reference ranges are not reported, since discordance with absolute values may lead to misinterpretation of CBC data. Current Interpretive Data was last revised on 2017. Testing performed by: [facility], [facility] 2, [address] [place] [address] Monocyte pct 8.2 % [place] Comment: Interpretive Data Percent cell count reference ranges are not reported, since discordance with absolute values may lead to misinterpretation of CBC data. Current Interpretive Data was last revised on 2017. Testing performed by: [facility], [facility] 2, [address] [place] [address] Eosinophil pct 1.3 % [place] Comment: Interpretive Data Percent cell count reference ranges are not reported, since discordance with absolute values may lead to misinterpretation of CBC data. Current Interpretive Data was last revised on 2017. Testing performed by: [facility], [facility] 2, [address] [place] [address] Basophil pct 0.4 % [place] Comment: Interpretive Data Percent cell count reference ranges are not reported, since discordance with absolute values may lead to misinterpretation of CBC data. Current Interpretive Data was last revised on 2017. Testing performed by: [facility], [facility] 2, [address] [place] [address] Blood 07/17/2024 12:2 2 PM DEER FARMER 07/17/2024 12:23 PM DEER FARMER us Angel Kelley NP LAB BLOOD ORDERABLES Leslye l Result [facility] [place] [address] Department [place] [address] * CBC with auto differential (07/17/2024 12:22 PM DEER FARMER) [facility] WBC 7.0 3.8 - 9.9 K/cumm Comment:Testing performed by : [place] [address], [address] [place] [address] Hgb 13.5 11.9 - 15.5 g/dL [facility]ERCHAR [facility] Comment:Testing performed by : [place] [address], [place] [address] Hct 40.7 35.6 - 45.5 % [facility]ER[facility] Comment:Testing performed by : [place] [address], [place] [address] Plt 177 150 - 400 K/cumm [facility] Comment:Testing performed by : [place] [address] [place] [address] MPV 10.4 9.1 - 12.3 fL [facility] Comment:Testing performed by : [place] [address] [place] [address] RBC 4.53 3.90 - 5.20 M/cumm CERCHAR [facility] Comment:Testing performed by : [place] [address] [place] [address] MCV 90 81 - 96 fL [facility] Comment:Testing performed by : [place] [address], [address] [place] [address] MCH 29.8 27.1 - 33.3 pg CERCHAR LEEWCH Comment:Testing performed by : [place] [address], [address] [place] [address] MCHC 33.2 32.3 - 35.7 g/dL [facility] Comment:Testing performed by : [place] [address], [address] [place] [address] RDW CV 13.2 11.1 - 14.9 % [facility] [place] Comment:Testing performed by : [facility], [facility], [address] [place] [address] RDW SD 43.1 35.7 - 48.1 fL [place] Comment:Testing performed by : [facility], [facility], [address] [place] [address] Blood 07/17/2024 12:2 2 PM DEER FARMER 07/17/2024 12:23 PM DEER FARMER Angel Kelley NP LAB BLOOD ORDERABLES Leslye l Result Performing Organization Address [facility] Co de Phone Number [facility] [address] [facility] [employer] [place] [address] * Lactate dehydrogenase (LD) (07/17/2024 12:22 PM DEER FARMER) Pathologist [facility] Lactate dehydrogenase (LDH) 173 100 - 250 Units/L Comment:Testing performed by : [facility], [address] [place] [address] Blood 07/17/2024 12:2 2 PM DEER FARMER 07/17/2024 12:31 PM DEER FARMER Agnel Kelley NP LAB BLOOD ORDERABLES Leslye l Result Performing Organization Address City/[facility] Co de Phone Number [facility] [address] [facility] [employer] [place] [address] * Comprehensive metabolic panel (07/17/2024 12:22 PM DEER FARMER) Sodium 139 135 - 145 mmol/L Comment:Testing performed by : [facility], [address] [place] [address] Potassium, pl 4.6 3.3 - 4.9 mmol/L [place] Comment:Testing performed by : [facility], [address], [place] [address] Chloride 100 97 - 110 mmol/L C[facility]ER [facility] Comment:Testing performed by : [facility], [address], [place] [address] CO2 28 22 - 32 mmol/L [facility] Comment:Testing performed by : [facility], [address], [place] [address] Anion gap 11 2 - 15 mmol/L C[facility] Comment:Testing performed by : [facility], [address], [place] [address] BUN 15 6 - 25 mg/dL [facility] Comment:Testing performed by : [facility], [address], [place] [address] Creatinine 0.80 0.60 - 1.10 mg/dL [facility] Comment:Testing performed by : [facility], [address], [place] [address] Glucose 172 70 - 199 mg/dL [facility]ER [facility] Comment: Interpretive Data Fasting glucose >/= 126 mg/dl is diagnostic for diabetes. Fasting is defined as no caloric intake for at least 8 hours. Fasting glucose between 100 mg/dl to 125 mg/dl is diagnostic of prediabetes. In a patient with classic symptoms of hyperglycemia or hyperglycemic crisis, a random glucose >/= 200 mg/dl is diagnostic for diabetes. In the absence of unequivocal hyperglycemia, results should be confirmed by repeat testing. The classification and Diagnosis of Diabetes Diabetes Care 2021; 46: S19-S40. Current interpretive data was last revised 2022. Testing performed by: [facility], [address], [place] [address] Calcium 9.9 8.5 - 10.3 mg/dL [facility] Comment:Testing performed by : [facility], [address], [place] [address] Bilirubin, total 0.3 0.1 - 1.2 mg/dL [facility] Comment:Testing performed by : [facility], [address], [place] [address] Protein, pl 7.2 6.5 - 8.5 g/dL [facility] Comment:Testing performed by : [facility], [address], [place] [address] Albumin 4.5 3.5 - 5.0 g/dL C[facility] Comment:Testing performed by : [facility], [address], [place] [address] Alk phos 81 40 - 130 Units/L [facility] Comment:Testing performed by : [facility], [address], [place] [address] ALT 37 7 - 45 Units/L [facility] Comment:Testing performed by : [facility], [address], [place] [address] AST 20 10 - 45 Units/L [facility]ER [facility] Comment:Testing performed by : [facility], [address], [place] [address] Blood 07/17/2024 12:2 2 PM DEER FARMER 07/17/2024 12:31 PM DEER FARMER us Angel Kelley NP LAB BLOOD ORDERABLES Leslye blank Result [facility] [place] [address] Department [place] [address] * PET/CT FDG Skull to Thigh (07/17/2024 12:07 PM DEER FARMER) Anatomical Region Laterality Modality N/A Positron Emissio n Tomography (PET) 07/17/2024 2:28 PM DEER FARMER Impressions 07/17/2024 3:14 PM DEER FARMER 1. No PET/CT evidence of locally recurrent or metastatic disease. 2. Resolution of previously visualized left greater than right waxing and waning groin/inguinal FDG avid cutaneous nodularity. Dictated by: Darius Mustafa M.D. The radiology attending physician has personally reviewed this study, and had reviewed and/or edited this written report and agrees with it. Electronically signed by: Herminio Jang MD Narrative 07/17/2024 3:14 PM DEER FARMER EXAMINATION: TUMOR FDG-PET/CT IMAGING DATE OF STUDY: 07/17/2024 SCANNER: [facility] Mobile RADIOPHARMACEUTICAL: 15.5 mCi F-18 Fluorodeoxyglucose (FDG) i.v. Injection site: Right antecubital HISTORY: 64-year-old woman with history of left mid back melanoma status post wide local excision and sentinel lymph node biopsy in 2020 with positive shai metastatic disease, currently on observation. The study is requested for restaging after completion of therapy. Subsequent treatment strategy. TECHNIQUE: The patient's fasting blood glucose level, measured by glucometer before injection of FDG, was 260 mg/dL. After intravenous administration of FDG, noncontrast CT images were obtained for attenuation correction and for fusion with emission PET images to allow for anatomical localization of PET findings. Emission PET images were then obtained. The study was interpreted on the [employer] workstation. The mean liver SUV (reported for quality technician purposes) is 2.5. The total scanned area was skull vertex to the knees. Images of the body were obtained starting 50 minutes after injection of tracer. COMPARISON: PET from 01/10/2024, 07/12/2023 and 11/30/2022 All reported SUVs are maximum SUVs, unless otherwise specified. DESCRIPTORS OF LESION FDG AVIDITY: Minimal: <= blood pool Mild: > blood pool and <= liver Moderate: > liver and <= 2x SUVmax liver Moderate to marked: >2x SUVmax liver and <= 3x SUVmax liver Marked: > 3x SUVmax liver FINDINGS: No area of suspicious FDG uptake. Interval resolution of left inguinal/groin subcutaneous uptake/soft tissue. Additional CT findings: Unchanged 0.5 cm right lower lobe pulmonary nodule, stable from 2019. A smaller pleural-based nodule in the right upper lobe is also unchanged compared to the prior examination. Moderately calcified abdominal aorta. Small ventral abdominal fat-containing hernia. Mild degenerative changes of the spine. Procedure Note Herminio Jang MD - 07/17/2024 EXAMINATION: TUMOR FDG-PET/CT IMAGING DATE OF STUDY: 07/17/2024 SCANNER: [facility] Mobile RADIOPHARMACEUTICAL: 15.5 mCi F-18 Fluorodeoxyglucose (FDG) i.v. Injection site: Right antecubital HISTORY: 64-year-old woman with history of left mid back melanoma status post wide local excision and sentinel lymph node biopsy in 2020 with positive shai metastatic disease, currently on observation. The study is requested for restaging after completion of therapy. Subsequent treatment strategy. TECHNIQUE: The patient's fasting blood glucose level, measured by glucometer before injection of FDG, was 260 mg/dL. After intravenous administration of FDG, noncontrast CT images were obtained for attenuation correction and for fusion with emission PET images to allow for anatomical localization of PET findings. Emission PET images were then obtained. The study was interpreted on the [employer] workstation. The mean liver SUV (reported for quality technician purposes) is 2.5. The total scanned area was skull vertex to the knees. Images of the body were obtained starting 50 minutes after injection of tracer. COMPARISON: PET from 01/10/2024, 07/12/2023 and 11/30/2022 All reported SUVs are maximum SUVs, unless otherwise specified. DESCRIPTORS OF LESION FDG AVIDITY: Minimal: <= blood pool Mild: > blood pool and <= liver Moderate: > liver and <= 2x SUVmax liver Moderate to marked: >2x SUVmax liver and <= 3x SUVmax liver Marked: > 3x SUVmax liver FINDINGS: No area of suspicious FDG uptake. Interval resolution of left inguinal/groin subcutaneous uptake/soft tissue. Additional CT findings: Unchanged 0.5 cm right lower lobe pulmonary nodule, stable from 2020. A smaller pleural-based nodule in the right upper lobe is also unchanged compared to the prior examination. Moderately calcified abdominal aorta. Small ventral abdominal fat-containing hernia. Mild degenerative changes of the spine. IMPRESSION: 1. No PET/CT evidence of locally recurrent or metastatic disease. 2. Resolution of previously visualized left greater than right waxing and waning groin/inguinal FDG avid cutaneous nodularity. Dictated by: Darius Mustafa M.D. The radiology attending physician has personally reviewed this study, and had reviewed and/or edited this written report and agrees with it. Electronically signed by: Herminio Jang MD Angel Kelley NP IM PET PROCEDURES Final Result * Screening Mammogram Bilateral W Yoni (10/25/2022 8:36 AM CDT) Anatomical Region Laterality Modality Breast Bilateral Mammography Narrative 10/26/2022 1:53 PM CDT Mammogram Technique: Bilateral Digital Breast Tomosynthesis, Bilateral C-view 2D Screening mammogram. Views obtained: bilateral craniocaudal and bilateral mediolateral oblique. Computer Aided Detection was performed. Mammogram Findings: The present examination has been compared to prior imaging studies performed at [facility] on 10/11/2013 and 02/23/2021. The breasts are heterogeneously dense, which may obscure small masses. There is no suspicious abnormality in either breast. Impression: There is no mammographic evidence of malignancy. Annual screening mammography is recommended. OVERALL FINAL ASSESSMENT: BI-RADS CATEGORY 1: Negative. Procedure Note Susie Kelly MD - 10/26/2022 Mammogram Technique: Bilateral Digital Breast Tomosynthesis, Bilateral C-view 2D Screening mammogram. Views obtained: bilateral craniocaudal and bilateral mediolateral oblique. Computer Aided Detection was performed. Mammogram Findings: The present examination has been compared to prior imaging studies performed at [facility] on 10/11/2013 and 02/23/2021. The breasts are heterogeneously dense, which may obscure small masses. There is no suspicious abnormality in either breast. Impression: There is no mammographic evidence of malignancy. Annual screening mammography is recommended. OVERALL FINAL ASSESSMENT: BI-RADS CATEGORY 1: Negative. us Self Screening Mammogram IMG MAMMO PROCEDURES Fi nal Result * COLONOSCOPY (04/21/2021 1:17 PM DEER FARMER) Anatomical Region Laterality Modality Other Narrative Procedure Note Francesca Soares MD PhD - 04/21/2021 1:17 PM [facility] Patient Name: Leticia Baugh Procedure Date: 04/21/2021 1:17 PM Date of : 1960 Admit Type: Outpatient Age: 60 Gender: Female Attending MD: Francesca Soares MD,PHD Room: [facility] ENDOSCOPY ROOM 8 Note Status: Finalized Procedure: Colonoscopy Indications: High risk colon cancer surveillance: Personalhistory of colonic polyps, , Last colonoscopy: April2016, Family history of colon cancer (mother at age of60, maternal aunt at age of 60) Referring MD: Torito Hoover M.D. Providers: Francesca Soares MD, PHD Medicines: Monitored Anesthesia Care Complications: No immediate complications. Estimated Blood Loss: Estimated blood loss: none. Procedure: Pre-Anesthesia Assessment: - Immediately prior to administration ofmedications, the patient was re-assessed for adequacy to receive sedatives. - The risks and benefits of the procedure and the sedation options and risks were discussed with the patient. All questions were answered and informed consent was obtained. The benefits, risks and alternatives of theprocedure and sedation were discussed and informed consentwas obtained. All questions were answered. Please referto the signed informed consent document in the medical record. The scope was passed under direct vision.The [id number] endoscope was introduced through the anus and advanced to the terminal ileum. The colonoscopy was performed without difficulty. The patient tolerated the procedure well. The qualityof the bowel preparation was excellent. The quality of the bowel preparation was evaluated using the BBPS ([place]ois Bowel Preparation Scale) with scores of:Right Colon = 3, Transverse Colon = 3 and Left Colon = 3 (entire mucosa seen well with no residual staining, small fragments of stool or opaque liquid). Thetotal BBPS score equals 9. The bowel preparation used was polyethylene glycol (PEG) via split doseinstruction. Bowel prep was administered using a split dose. Findings: The perianal and digital rectal examinations were normal. The terminal ileum appeared normal. A 4 mm polyp was found in the ascending colon. The polyp was Nikkie classification IIa (superficial, elevated). The polyp was removedwith a jumbo cold forceps. Resection and retrieval were complete. The exam was otherwise without abnormality on direct and retroflexion views. Impression: - The examined portion of the ileum was normal. - One 4 mm polyp in the ascending colon, removedwith a jumbo cold forceps. Resected and retrieved. - The examination was otherwise normal on directand retroflexion views. Recommendation: - Await pathology results. - Repeat colonoscopy in 5 years for surveillancebased on pathology results. Attending Participation: I personally performed the entire procedure. Electronically signed by Francesca Soares MD. Francesca Soares MD, PHD 04/21/2021 1:41:20 PM Number of Addenda: 0 Note Initiated On: 04/21/2021 1:17 PM Recognized by the [place] [employer] for promoting quality in endoscopy Francesca Soares MD PhD ENDOSCOPY PROCEDURES Leslye l Result * POCT hemoglobin A1c (03/09/2021 1:58 PM CDT) Hemoglobin A1C, POC 9.9 Blood specimen (specimen) 03/09/2021 1:58 PM CDT Torito Hoover MD POINT OF CARE TEST ORDERABLES Final Result * POCT lipid panel (12/01/2020 2:40 PM CDT) Cholesterol, POC 189 mg/dL HDL, POC 37 mg/dL Triglycerides, POC 269 mg/dL LDL Cholesterol POC 98 mg/dL Capillary blood 12/01/2020 2 :40 PM CDT Torito Hoover MD POINT OF CARE TEST ORDERABLES Final Result from Last 3 Months or Most Recently Relevant to Health Maintenance Insurance [employer] [place] [address] [place] [address] [employer]ESS [employer] O[employer]THEM ACCESS BLUE [employer] OOS * Guarantor: WINDY SILVERIO Account Type Relation to Patient Date of Phone Billing Address Workers Comp Employer WORKERS COMPENSATION GENERIC Advance Directives For more information, please contact: [phone] * Full Code (Latest Code Status on File) Date Activated Date Inactivated Comments 04/21/2021 12:30 PM 04/21/2021 6:41 PM Care Teams Steamboat Captain Relationship Specialty Start Date End Date Rusty Bentley DO [address] [facility] [address] [place] [address] PCP - General Internal Medicine 04/25/23 Tiago Leblanc MD [address] [facility] [address] [place] [address] Medical Oncologist/Pan Cleaner Medical Oncology 02/02/21 Rusty Soares MD PhD [address] [facility] [address] [place] [address] Service Counselor Dermatology 08/01/22
--- OUTSIDE RECORDS SUMMARY | 2024-09-14 09:30 | XMS_ITS | Clinical Summary ---
Author Organization [facility] Address [address] [place] [address] Care Team Providers Care Hospitality Recruiter Name Role Phone Patrick Coronado MD Primary Care Provider Unavailab le Allergies No known active allergies Medications venlafaxine 24 hr 150 MG 24 hr capsule Take 150 mg by mouth daily. 1 12/23/2017 Active Estradiol-Noreth indrone Acet 0.5-0.1 MG Tab Take 1 tablet by mouth daily. 3 12/30/2017 Active SITagliptin 100 MG tablet Take 100 mg by mouth daily. Active metFORMIN 1000 MG tablet Take 1,000 mg by mouth 2 (two) times daily with meals. Active Social History Tobacco Use Types Packs/Day Years Used Date Smoking Tobacco: Never Assessed Comments No Sex and Gender Information Value Date Recorded Sex Assigned at Not on file Legal Sex Female 4:56 PM CDT Gender Identity Not on file Sexual Orientation Not on file Last Filed Vital Signs Vital Sign Reading Time Taken Comments Blood Pressure 158/89 01/31/2018 6:35 PM CDT Pulse 80 01/31/2018 6:35 PM CDT Temperature 36.9 C (98.4 F) 01/31/2018 4:57 PM CDT Respiratory Rate 16 01/31/2018 6:35 PM CDT Oxygen Saturation 98% 01/31/2018 6:35 PM CDT Inhaled Oxygen Concentration - - Weight 114.3 kg (252 lb) 01/31/2018 4:57 PM CDT Height 165.1 cm (5' 5 ) 01/31/2018 4:57 PM CDT Body Mass Index 41.93 01/31/2018 4:57 PM CDT Plan of Treatment Health Maintenance Due Date Last Done Comments Cervical Cancer Screening Pa p Smear (Age 30 to 64) Every 3 Years 1960 Colorectal Cancer Screening Colonoscopy (10 Years) 1962 Annual Physical 1965 Hepatitis C 1980 DTaP, Tdap and Td Vaccines ( 1 - Tdap) 1981 Cervical Cancer Screening Pa p with HPV Testing (Age 30 to 64) Every 5 Years 1992 Cervical Cancer Screening with HPV 1992 Mammogram Screening 2002 Zoster Vaccines (1 of 2) 2012 COVID-19 Vaccine ( - 2023-2 5 season) 2024 RSV Immunization or 60+ Years (1 - 1-dose 75+ series) 2037 Meningococcal B Vaccine Aged Out No l onger eligible based on patient's age to complete this topic Meningococcal Vaccine Aged Out No natalia mninie eligible based on patient's age to complete this topic Pneumococcal Vaccine: Pediat rics (0 to 5 Years) and At-Risk Patients (6 to 64 Years) Aged Out No longer eligible b ased on patient's age to complete this topic RSV Immunizations Under 20 Months Aged Out No longer eligible based on patient's age to complete this topic Insurance Care Teams Hospitality Recruiter Relationship Specialty Start Date End Date Patrick Coronado MD PCP - General NETWORK ADMIN 01/31/18
--- OUTSIDE RECORDS SUMMARY | 2024-09-14 09:30 | XMS_ITS | Clinical Summary ---
Author Organization [facility] Address [facility] [facility] [place] [address] Care Team Providers Care Pet Walker Name Role Phone Patrick Coronado MD Primary Care Provider Unavailabl e Source Comments [facility],non-owned Affiliates and Associated Physician Practices is amultiple site organization consisting of ambulatory clinics and hospital sitesin [place], [place], [place] and [place]. This disclosure is being madepursuant to the Care Everywhere program and may not contain all information available regarding this patient. Last updated 18.[facility] Allergies No known active allergies Medications * Be aware that medications may not be up to date on this document. Alwaysverify current medications with the patient. Medication Sig Dispensed Refills Start Date End Date Status metFORMIN (GLUCOPHAGE) 1000 MG tablet Take 1,000 mg by mouth 2 times daily with morning and evening meal Active SITagliptin (JANUVIA) 100 MG tablet Take 100 mg by mouth once daily Active ADVAIR DISKUS 250-50 MCG/DOSE inhaler INHALE 1 DOSE BY MOUTH TWICE DAILY. RINSE MOUTH AFTER USE 0 11/19/2017 Active venlafaxine XR 24hr (EFFEXOR XR) 150 MG capsule Take 150 mg by mouth once daily 1 12/23/2017 Active PROAIR HFA 108 (90 BASE) MCG/ACT inhaler INHALE 1 - 2 PUFFS BY MOUTH EVERY 4 HOURS NEEDED FOR SHORTNESS OF BREATH 2 12/19/2017 Active estradiol-norethindr one (ACTIVELLA) 0.5-0.1 MG tablet Take 1 tablet by mouth once daily 30 tablet 3 12/30/2017 Active Family History Medical History Relation Name Comments Cancer - Breast Maternal Aunt Relation Name Status Comments Maternal Aunt Social History Tobacco Use Types Packs/Day Years Used Date Smoking Tobacco: Every Day Cigarettes Smokeless Tobacco: Never Alcohol Use Standard Drinks/Week Comments Yes 0 (1 standard drink = 0.6 oz pur e alcohol) social drinker Sex and Gender Information Value Date Recorded Sex Assigned at Not on file Gender Identity Not on file Sexual Orientation Not on file Last Filed Vital Signs Vital Sign Reading Time Taken Comments Blood Pressure 110/70 12/30/2017 2:10 PM CDT Pulse - - Temperature - - Respiratory Rate - - Oxygen Saturation - - Inhaled Oxygen Concentration - - Weight 119.3 kg (263 lb) 12/30/2017 2:10 PM CDT Height 165.1 cm (5' 5 ) 12/30/2017 2:10 PM CDT Body Mass Index 43.77 12/30/2017 2:10 PM CDT Plan of Treatment Health Maintenance Due Date Last Done Comments COLOGUARD (AGES 45-75) - COL ON CA SCREENING 1960 COLON MONITORING 1960 COLONOSCOPY - COLON CA SCREENING 1962 CT COLONOGRAPHY - COLON CA SCREENING 1960 Colorectal Cancer Screening 1960 FIT - COLON CA SCREENING 1962 FLEX SIG - COLON CA SCREENING 1960 LIPID TESTING 1960 HIV SCREENING 1977 HEPATITIS C SCREENING 05/24/1980 DTAP/TDAP/TD VACCINES (1 - Tdap) 1981 PNEUMOCOCCAL VACCINE (1 of 2 - PCV) 1981 PNEUMOCOCCAL VACCINE 50+ (1 of 1 - PCV) 2012 ZOSTER VACCINE (1 of 2) 2012 SCREENING FOR DIABETES 12/30/2017 MAMMOGRAM 01/07/2020 01/06/2018 PAP with HPV 12/30/2022 12/30/2017 COVID-19 VACCINE ( - 2023-2 5 season) 2024 DEPRESSION SCREENING 06/06/2024 INFLUENZA VACCINE (Season Ended) 2025 Respiratory Syncytial Virus (RSV) Vaccine Pt: or over 60 yrs (1 - 1-dose 75+ series) 2037 HEPATITIS B VACCINE Aged Out No longe r eligible based on patient's age to complete this topic HIB VACCINE Aged Out No longer eligi ble based on patient's age to complete this topic HPV VACCINE Aged Out No longer eligi ble based on patient's age to complete this topic MENINGOCOCCAL (Group B) VACC INE SHARED DECISION-MAKING Aged Out No longer eligibl e based on patient's age to complete this topic MENINGOCOCCAL GROUPS A/C/Y/W VACCINE Aged Out No longer eligible b ased on patient's age to complete this topic Procedures Procedure Name Priority Date/Time Associated Diagnosis Comments MAMMO BILAT SCREENING Routine 01/06/2018 2:27 PM CDT Well woman exam with routine gynecological exam Breast cancer screening HPV DETECTION HIGH RISK AKHIL Routine 12/30/2017 3:07 PM CDT Well woman exam with routine gynecological exam from Last 3 Months or Most Recently Relevant to Health Maintenance Results * MAMMO BILAT SCREENING (01/06/2018 2:27 PM CDT) Anatomical Region Laterality Modality Breast Bilateral Mammography 01/25/2018 1:05 PM CDT Impressions 01/25/2018 1:10 PM CDT No mammographic evidence of malignancy in either breast. ASSESSMENT: BIRADS Category 1: Negative mammogram. RECOMMENDATION: Bilateral screening mammogram in one year. Thank you for allowing us to participate in the care of your patient. Reading Radiologist: Rosie Stock MD on 01/25/2018 at 1:10 PM Narrative 01/25/2018 1:10 PM CDT EXAMINATION: Digital screening mammogram on 01/06/2018. Low-dose full-field digital breast examination was performed with 2-D acquisitions. Computer assisted detection was utilized. PRIOR: 2013 and 2011 [facility] now available BREAST PARENCHYMAL DENSITY: The breasts are heterogeneously dense, which may obscure small masses. RISK ASSESSMENT CALCULATION: Based on the information provided by your patient, her lifetime risk of breast cancer is average (<15%). Additional quantitative risk model data and patient history details have been scanned as a document/letter in Epic electronic medical record (media tab). Please note this information is only as accurate as the data entered by the patient. FINDINGS: No suspicious masses, areas of architectural distortion or microcalcifications are evident on 2-D images. There has been no significant interval change since the prior examination. Rancho Bernard MD MAMMO ORDERABLES * HPV DETECTION HIGH RISK AKHIL (12/30/2017 3:07 PM CDT) High Risk Human Papilloma Result Not Detected Not Detected 01/03/2018 9:10 AM CDT [facility] High Risk Human Papilloma Interp 01/03/2018 9:10 AM CDT [facility] Comment:High Risk Human Hank lloma Virus was Not Detected. Pathology/Cytolo gy MISCELLANEOUS SAMPLES / Unknown 12/30/2017 3:07 PM CDT 01/02/2018 12:18 PM CDT Narrative [facility] - 01/03/2018 9:10 AM CDT Nucleic acid isolated from the specimen was analyzed with a nucleic acid amplification test (FDA approved Gen-Probe HPV Assay) to detect high risk human papilloma virus (Types: 16, 18, 31, 33, 35, 39, 45, 51, 52, 56, 58, 59, 66, and 68). The reference range is Not Detected . Comment: These test results should not be used as the sole basis for clinical assessment and treatment of patients. These results should always be correlated with other available data (cytology, histology, and clinical information). Rancho Bernard MD LAB - MICROBIOLOGY O RDERABLES [facility] [address] [phone] from Last 3 Months or Most Recently Relevant to Health Maintenance Care Teams Pet Walker Relationship Specialty Start Date End Date Patrick Coronado MD PCP - General 11/15/17
--- OUTSIDE RECORDS SUMMARY | 2024-09-14 09:30 | XMS_ITS ---
Author Organization [facility] Address [address] [place] [address] Care Team Providers Care Candy Catcher Name Role Phone Tiago Leblanc MD Unavailable [phone] Rusty Soares MD PhD Unavailable Rusty Bentley DO Primary Care Provider [phone] Active Problems Problem Noted Date Diagnosed Date Family history of colon cancer 01/30/2021 Overview (01/30/2021): Added automatically from request for surgery [id number] Melanoma of back 12/20/2020 Skin lesion 08/25/2020 Essential hypertension 06/23/2020 Assessment & Plan (06/23/2020 2:46 PM SILK WEAVER): Blood pressure at time Type 2 diabetes mellitus wit hout complication, without long-term current use of insulin 03/17/2020 Assessment & Plan (06/23/2020 2:46 PM SILK WEAVER): Seems to lost 10 lb. A1c 10.5. Will add Farxiga 5 mg daily Hyperlipidemia 03/17/2020 Assessment & Plan (06/23/2020 2:46 PM SILK WEAVER): Lipid reviewed continue present Rx Pain in the coccyx 10/18/2016 Chronic obstructive pulmonary disease 10/11/2013 Mass of breast 10/11/2013 Current Treatment and Therapy Plans No current plan information found. Past Treatment and Therapy Plans No past plan information found. Lifetime Dose Tracking * Chemical Lifetime Dose Automatic Entry Manual Entr y DLP 401 mGycm 401 mGycm 0 mGycm
--- OUTSIDE RECORDS SUMMARY | 2024-09-14 09:30 | XMS_ITS | Referral Summary ---
Author Organization [facility] Address [address] [place] [address] Care Team Providers Care Field Artillery Radar Operator Name Role Phone Tiago Leblanc MD Unavailable [phone] Rusty Soares MD PhD Unavailable [phone] Rusty Bentley DO Primary Care Provider [phone] Encounters Date Type Department Care Team Description 07/18/2024 Telephone [facility] Oncology [address] [facility] [address] [place] [address] Calvin Shelby 07/17/2024 1:00 PM LAB TESTER Lab [facility] [address] [facility] [place] [address] Melanoma of back (HCC) 07/17/2024 2:00 PM LAB TESTER Office Visit [facility] Oncology [address] [facility] [address] [place] [address] Tiago Leblanc MD Melanoma of back (HCC) 07/17/2024 1:00 PM LAB TESTER Lab [facility] Oncology [address] [place] [address] [address] [place] [address] Melanoma of back (HCC) 07/17/2024 10:54 AM LAB TESTER - 07/17/2024 11:59 PM LAB TESTER Hospital Encounter [facility] Imaging [address] [facility] Medical Office Building 2 [place] [address] Melanoma of back (HCC) Discharge Disposition: Discharge to home or self care from Last 3 Months Allergies No known active allergies Medications venlafaxine [...] (01/30/2021): Added automatically from request for surgery [id number] Melanoma of back 12/20/2020 Skin lesion 08/25/2020 Essential hypertension 06/23/2020 Assessment & Plan (06/23/2020 2:46 PM LAB TESTER): Blood pressure at time Type 2 diabetes mellitus wit hout complication, without long-term current use of insulin 03/17/2020 Assessment & Plan (06/23/2020 2:46 PM LAB TESTER): Seems to lost 10 lb. A1c 10.5. Will add Farxiga 5 mg daily Hyperlipidemia 03/17/2020 Assessment & Plan (06/23/2020 2:46 PM LAB TESTER): Lipid reviewed continue present Rx Pain in the coccyx 10/18/2016 Chronic obstructive pulmonary disease 10/11/2013 Mass of breast 10/11/2013 Immunizations Immunization Administration Dates Next Due Influenza, Quadrivalent, Spl it, Preservative Free, Intramuscular 02/17/2020,02/03/2019 Influenza, Trivalent, Preser vative Free, Intramuscular 03/20/2017,03/20/2016,03/22/2015 Influenza, Unspecified 07/15/2014 Pneumococcal Conjugate PCV 13 02/17/2020 Pneumococcal Polysaccharide PPV23 02/03/2019,02/2015 Social History Tobacco Use Types Packs/Day Years [...] on file Legal Sex Female 2:38 AM LAB TESTER Gender Identity Not on file Sexual Orientation Not on file Last Filed Vital Signs Vital Sign Reading Time Taken Comments Blood Pressure 127/78 07/17/2024 2:08 PM LAB TESTER Pulse 68 07/17/2024 2:08 PM LAB TESTER Temperature 36.6 C (97.9 F) 07/17/2024 2:08 PM LAB TESTER Respiratory Rate 16 07/17/2024 2:08 PM LAB TESTER Oxygen Saturation 98% 07/17/2024 2:08 PM LAB TESTER Inhaled Oxygen Concentration - - Weight 106.6 kg (235 lb 1.6 oz) 07/17/2024 2:08 PM LAB TESTER Height 167.4 cm (5' 5.91 ) 07/17/2024 2:08 PM CS T Body Mass Index 38.05 07/17/2024 2:08 PM LAB TESTER Plan of Treatment Not on file Procedures Procedure Name Priority Date/Time Associated Diagnosis Comments EGFR Routine 07/17/2024 12:22 PM LAB TESTER Melanoma of back (HCC) DIFFERENTIAL AUTO Routine 07/17/2024 12:22 PM LAB TESTER Melanoma of back (HCC) COMPREHENSIVE METABOLIC PANEL Routine 07/17/2024 12:22 PM LAB TESTER Melanoma of back (HCC) CBC WITH AUTO DIFFERENTIAL Routine 07/17/2024 12:22 PM LAB TESTER Melanoma of back (HCC) LACTATE DEHYDROGENASE Routine 07/17/2024 12:22 PM LAB TESTER Melanoma of back (HCC) PET/CT FDG SKULL TO THIGH Schedule Routine, Read Routine (OP Routine) 07/17/2024 12:07 PM LAB TESTER Melanoma of back (HCC) SCREENING MAMMOGRAM BILATERAL W YONI Schedule Routine, Read Routine (OP Routine) 10/25/2022 8:36 AM CDT Screening mammogram, encounter for COLONOSCOPY 04/21/2021 1:17 PM LAB TESTER POCT HEMOGLOBIN A1C Routine 03/09/2021 1 :58 PM CDT Type 2 diabetes mellitus without complication, without long-term current use of insulin (HCC) Hyperlipidemia, unspecified hyperlipidemia type Essential hypertension POCT LIPID PANEL Routine 12/01/2020 2:40 PM CDT Hyperlipidemia, unspecified hyperlipidemia type from Last 3 Months or Most Recently Relevant to Health Maintenance Results * eGFR (07/17/2024 12:22 PM LAB TESTER) eGFR 83 >=60 mL/min/1. 73 m2 Comment: [...] was last reviewed 2021. Testing performed by: [facility], [address] [place] [address] Blood 07/17/2024 12:2 2 PM LAB TESTER 07/17/2024 12:31 PM LAB TESTER us Angel Kelley NP LAB BLOOD ORDERABLES Leslye l Result [facility] [address] [facility]. [place] [address] * Differential, auto (07/17/2024 12:22 PM LAB TESTER) Neutrophil abs 4.4 1.5 - 6.5 K/cumm Comment:Testing performed by : [facility], [facility] [address], [address] [place] [address] Imm gran abs 0.0 0.0 - 0.1 K/cumm [facility] Comment:Testing performed by : [facility], [facility], [address] [place] [address] Lymphocyte abs 1.8 0.8 - 3.3 K/cumm [facility] Comment:Testing performed by : [facility], [facility], [address] [place] [address] Monocyte abs 0.6 0.2 - 0.8 K/cumm [facility] Comment:Testing performed by : [facility], [facility], [address] [place] [address] Eosinophil abs 0.1 0.0 - 0.5 K/cumm [facility] Comment:Testing performed by : [facility], [facility], [address] [place] [address] Basophil abs 0.0 0.0 - 0.1 K/cumm [facility] Comment:Testing performed by : [facility], [facility], [address] [place] [address] Neutrophil pct 63.7 % [facility] Comment: Interpretive Data Percent cell count reference ranges are not reported, since discordance with absolute values may lead to misinterpretation of CBC data. Current Interpretive Data was last revised on 2017. Testing performed by: [facility], [facility], [address] [place] [address] Imm gran pct 0.4 % [facility] Comment: Interpretive Data Percent cell count reference ranges are not reported, since discordance with absolute values may lead to misinterpretation of CBC data. Current Interpretive Data was last revised on 2017. Testing performed by: [facility], [facility], [address], [place] [address] Lymphocyte pct 26.0 % [facility] Comment: Interpretive Data Percent cell count reference ranges are not reported, since discordance with absolute values may lead to misinterpretation of CBC data. Current Interpretive Data was last revised on 2017. Testing performed by: [facility], [facility], [address] [place] [address] Monocyte pct 8.2 % [facility] Comment: Interpretive Data Percent cell count reference ranges are not reported, since discordance with absolute values may lead to misinterpretation of CBC data. Current Interpretive Data was last revised on 2017. Testing performed by: [facility], [facility], [address] [place] [address] Eosinophil pct 1.3 % [facility] Comment: Interpretive Data Percent cell count reference ranges are not reported, since discordance with absolute values may lead to misinterpretation of CBC data. Current Interpretive Data was last revised on 2017. Testing performed by: [facility], [facility], [address] [place] [address] Basophil pct 0.4 % [facility] Comment: Interpretive Data Percent cell count reference ranges are not reported, since discordance with absolute values may lead to misinterpretation of CBC data. Current Interpretive Data was last revised on 2017. Testing performed by: [facility], [facility], [address] [place] [address] Blood 07/17/2024 12:2 2 PM LAB TESTER 07/17/2024 12:23 PM LAB TESTER Angel Kelley NP LAB BLOOD ORDERABLES Leslye l Result [facility] [address] [facility]. [place] [address] * CBC with auto differential (07/17/2024 12:22 PM LAB TESTER) WBC 7.0 3.8 - 9.9 K/cumm Comment:Testing performed by : [facility], [facility], [address] [place] [address] Hgb 13.5 11.9 - 15.5 g/dL [facility] Comment:Testing performed by : [facility], [address] [place] [address] Hct 40.7 35.6 - 45.5 % [facility] Comment:Testing performed by : [facility] 2, [address] [place] [address] Plt 177 150 - 400 K/cumm [facility] Comment:Testing performed by : [place] [address], [address] [place] [address] MPV 10.4 9.1 - 12.3 fL [facility] Comment:Testing performed by : [place] [address], [place] [address] RBC 4.53 3.90 - 5.20 M/cumm [facility] Comment:Testing performed by : [place] [address] [place] [address] MCV 90 81 - 96 fL [facility] Comment:Testing performed by : [place] [address], [place] [address] MCH 29.8 27.1 - 33.3 pg [facility] Comment:Testing performed by : [place] [address], [address], [place] [address] MCHC 33.2 32.3 - 35.7 g/dL [facility] Comment:Testing performed by : [place] [address], [address] [place] [address] RDW CV 13.2 11.1 - 14.9 % [facility] Comment:Testing performed by : [place] [address], [address] [place] [address] RDW SD 43.1 35.7 - 48.1 fL [facility] Comment:Testing performed by : [place] [address], [place] [address] Blood 07/17/2024 12:2 2 PM LAB TESTER 07/17/2024 12:23 PM LAB TESTER Angel Kelley NP LAB BLOOD ORDERABLES Leslye l Result Performing Organization Address [facility] de Phone Number [facility] [address] [place] [address] * Lactate dehydrogenase (LD) (07/17/2024 12:22 PM LAB TESTER) Pathologist [facility] Lactate dehydrogenase (LDH) 173 100 - 250 Units/L Comment:Testing performed by : [facility], [address], [place] [address] Blood 07/17/2024 12:2 2 PM LAB TESTER 07/17/2024 12:31 PM LAB TESTER Angel Kelley NP LAB BLOOD ORDERABLES Leslye l Result Performing Organization Address [facility] Phone Number [facility] [address] [facility] [place] [address] * Comprehensive metabolic panel (07/17/2024 12:22 PM LAB TESTER) Pathologist [facility] Sodium 139 135 - 145 mmol/L Comment:Testing performed by : [facility], [address], [place] [address] Potassium, pl 4.6 3.3 - 4.9 mmol/L [facility] Comment:Testing performed by : [facility], [address], [place] [address] Chloride 100 97 - 110 mmol/L [facility] Comment:Testing performed by : [facility], [address], [place] [address] CO2 28 22 - 32 mmol/L [facility] Comment:Testing performed by : [facility], [address], [place] [address] Anion gap 11 2 - 15 mmol/L [facility] Comment:Testing performed by : [facility], [address], [place] [address] BUN 15 6 - 25 mg/dL [facility] Comment:Testing performed by : [facility], [address], [place] [address] Creatinine 0.80 0.60 - 1.10 mg/dL [facility] Comment:Testing performed by : [facility], [address], [place] [address] Glucose 172 70 - 199 mg/dL CERNER [...] was last revised 2022. Testing performed by: [facility], [address], [place] [address] Calcium 9.9 8.5 - 10.3 mg/dL [facility] Comment:Testing performed by : [facility], [address], [place] [address] Bilirubin, total 0.3 0.1 - 1.2 mg/dL [facility] Comment:Testing performed by : [facility], [address], [place] [address] Protein, pl 7.2 6.5 - 8.5 g/dL [facility] Comment:Testing performed by : [facility], [address], [place] [address] Albumin 4.5 3.5 - 5.0 g/dL [facility] Comment:Testing performed by : [facility], [address], [place] [address] Alk phos 81 40 - 130 Units/L [facility] Comment:Testing performed by : [facility], [address], [place] [address] ALT 37 7 - 45 Units/L [facility] Comment:Testing performed by : [facility], [address] [place] [address] AST 20 10 - 45 Units/L [facility] Comment:Testing performed by : [facility], [address] [place] [address] Blood 07/17/2024 12:2 2 PM LAB TESTER 07/17/2024 12:31 PM LAB TESTER us Angel Kelley NP LAB BLOOD ORDERABLES Leslye abhay Result [facility] [address] [place] [address] * PET/CT FDG Skull to Thigh (07/17/2024 12:07 PM LAB TESTER) Anatomical Region Laterality Modality N/A Positron Emissio n Tomography (PET) 07/17/2024 2:28 PM LAB TESTER Impressions 07/17/2024 3:14 PM LAB TESTER 1. No PET/CT evidence of locally recurrent or metastatic disease. 2. Resolution of previously visualized left greater than right waxing and waning groin/inguinal FDG avid cutaneous nodularity. Dictated by: Darius Mustafa M.D. The radiology attending physician has personally reviewed this study, and had reviewed and/or edited this written report and agrees with it. Electronically signed by: Herminio Jang MD Narrative 07/17/2024 3:14 PM LAB TESTER EXAMINATION: TUMOR FDG-PET/CT IMAGING DATE OF STUDY: 07/17/2024 SCANNER: [facility] [employer] RADIOPHARMACEUTICAL: 15.5 mCi F-18 Fluorodeoxyglucose (FDG) [...] obtained. The study was interpreted on the [employer] workstation. The mean liver SUV (reported for software quality automation engineer purposes) is 2.5. The total scanned area [...] FDG-PET/CT IMAGING DATE OF STUDY: 07/17/2024 SCANNER: [facility] RADIOPHARMACEUTICAL: 15.5 mCi F-18 Fluorodeoxyglucose (FDG) [...] obtained. The study was interpreted on the [employer] workstation. The mean liver SUV (reported for software quality automation engineer purposes) is 2.5. The total scanned area [...] by: Herminio Jang MD Angel Kelley NP IMG PET PROCEDURES Final Result * Screening Mammogram [...] to prior imaging studies performed at [facility] on 10/11/2013 and 02/23/2021. The breasts are [...] to prior imaging studies performed at [facility] on 10/11/2013 and 02/23/2021. The breasts are heterogeneously dense, which may obscure small masses. There is no suspicious abnormality in either breast. Impression: There is no mammographic evidence of malignancy. Annual screening mammography is recommended. OVERALL FINAL ASSESSMENT: BI-RADS CATEGORY 1: Negative. us Self Screening Mammogram IMG MAMMO PROCEDURES Fi nal Result * COLONOSCOPY (04/21/2021 1:17 PM LAB TESTER) Anatomical Region Laterality Modality Other Narrative Procedure Note Francesca Soares MD PhD - 04/21/2021 1:17 PM CST [facility] Patient Name: Leticia Baugh Procedure Date: 04/21/2021 1:17 PM Date of : 1960 Admit Type: Outpatient Age: 60 Gender: Female Attending MD: Francesca Soares MD,PHD Room: [facility] ENDOSCOPY ROOM 8 Note Status: Finalized Procedure: [...] The scope was passed under direct vision.The [id number] endoscope was introduced through the anus and advanced to the terminal ileum. The colonoscopy was performed without difficulty. The patient tolerated the procedure well. The qualityof the bowel preparation was excellent. The quality of the bowel preparation was evaluated using the BBPS ([place] Bowel Preparation Scale) with scores of:Right Colon [...] On: 04/21/2021 1:17 PM Recognized by the [employer] for promoting quality [...] Most Recently Relevant to Health Maintenance Insurance [employer] OOS ANTHEM ACCESS BLUE ACCESS OOS ANTHEM ACCESS PanX ACCESS OOS * Guarantor: [employer] Account Type Relation to Patient Date of Phone Billing Address Workers Comp Employer WORKERS COMPENSATION GENERIC Advance Directives For more information, please contact: [phone] * Full Code (Latest Code Status on File) Date Activated Date Inactivated Comments 04/21/2021 12:30 PM 04/21/2021 6:41 PM Care Teams Field Artillery Radar Operator Relationship Specialty Start Date End Date Rusty Bentley DO [address] [facility] [address] [place] [address] PCP - General Internal Medicine 04/25/23 Tiago Leblanc MD [address] [facility] [address] [place] [address] Medical Oncologist/Fence Setter Medical Oncology 02/02/21 Rusty Soares MD PhD [address] [facility] [address] [place] [address] Integration Aide Dermatology 08/01/22
--- OUTSIDE RECORDS SUMMARY | 2024-09-14 09:30 | XMS_ITS | Encounter Summary ---
Author Organization [facility] Address [address] [place] [address] Phone Care Team Providers Care Supervisor Final Name Role Phone Tiago Leblanc MD Unavailable [phone] Rusty Soares MD PhD Unavailable No, Physician Primary Care Provider [phone] Rusty Bentley DO Unavailable [phone] Rusty Bentley DO Primary Care Provider [phone] Encounter Details Date Type Department Care Team (Late st Contact Info) Description 01/17/2023 Telephone [facility] Rheumatology [facility] 5th [place] [address] [place] [address] Samantha Wilks CMA Social History Tobacco Use Types Packs/Day Years Used Date Smoking Tobacco: Every Day Cigarettes 0.5 33.3 Started: 1989 Smokeless Tobacco: Never Comments:Smoking History Pac ks/day: 0 Packs Alcohol Use Standard Drinks/Week Comments [...] on file Legal Sex Female 2:38 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 Gender Identity Not on file Sexual Orientation Not on file documented as of this encounter Plan of Treatment Not on file documented as of this encounter Visit Diagnoses Not on filedocumented in this encounter Care Teams Supervisor Final Relationship Specialty Start Date End Date No, Physician PCP - General 10/22/22 04/24/23 Rusty Bentley DO PCP - General Internal Medicine 04/25/23 Tiago Leblanc MD [address] [facility] [address] [place] [address] Medical Oncologist/Psychic Reader Medical Oncology 02/02/21 Rusty Soares MD PhD [address] [facility] [address] [place] [address] Residential Real Estate Sales Manager Dermatology 08/01/22 Rusty Bentley DO Internal Medicine 04/25/23 04/25/23 documented as of this encounter
== END 2024-09-14 09:13 | disposition home or self-care (01) ==
PROVIDERS: PCP Internal Medicine; Visit Provider Internal Medicine
DX: Z12.31 Encounter for screening mammogram for malignant neoplasm of breast (principal)
CPT/HCPCS: 77063; 77067

== ENCOUNTER 2024-10-01 08:27 | Outpatient (CLI) | payer BC, SELFPAY ==
--- OUTSIDE RECORDS SUMMARY | 2024-10-01 08:41 | XMS_ITS | Clinical Summary ---
Author Organization [facility] Address [address] [place] [address] Care Team Providers Care Accelerator Systems Director Name Role Phone Patrick Coronado MD Primary [...] Screening with HPV 1992 Mammogram Screening 2002 Pneumococcal Vaccine: 50+ Ye ars (1 of 1 - PCV) 2012 Zoster Vaccines (1 of 2) 2012 COVID-19 Vaccine (1 - 2023-2 5 season) 2024 RSV Immunization or 60+ Years (1 - 1-dose 75+ series) 2037 Meningococcal B Vaccine Aged Out No l onger eligible based on patient's age to complete this topic Meningococcal Vaccine Aged Out No natalia minnie eligible based on patient's age to complete this topic RSV Immunizations Under 20 Months Aged Out No longer eligible based on patient's age to complete this topic Insurance Care Teams Accelerator Systems Director Relationship Specialty Start Date End Date Patrick Coronado MD PCP - General GLASS BULB SILVERER 01/31/18
--- OUTSIDE RECORDS SUMMARY | 2024-10-01 08:41 | XMS_ITS | Referral Summary ---
Author Organization [facility] Address [address] [place] [address] Care Team Providers Care Education Officer Name Role Phone Tiago Leblanc MD Unavailable [phone] Rusty Soares MD PhD Unavailable Rusty Bentley DO Primary Care Provider [phone] Encounters Date Type Department Care Team Description 07/18/2024 Telephone [facility] Oncology [address] [place] [address] Calvin Shelby 07/17/2024 1:00 PM MARKETING ACCOUNT EXECUTIVE Lab [facility] at [facility] [address] [place] [address] Melanoma of back (HCC) 07/17/2024 2:00 PM MARKETING ACCOUNT EXECUTIVE Office Visit [facility] Oncology [address] [place] [address] Tiago Leblanc MD Melanoma of back (HCC) 07/17/2024 1:00 PM MARKETING ACCOUNT EXECUTIVE Lab [facility] Oncology [address] [place] [address] [address] [place] [address] Melanoma of back (HCC) 07/17/2024 10:54 AM MARKETING ACCOUNT EXECUTIVE - 07/17/2024 11:59 PM MARKETING ACCOUNT EXECUTIVE Hospital Encounter [facility] Imaging [address] Medical Office Building 2 [place] [address] Melanoma of back (HCC) Discharge Disposition: Discharge [...] (01/30/2021): Added automatically from request for surgery [id number] Melanoma of back 12/20/2020 Skin lesion 08/25/2020 Essential hypertension 06/23/2020 Assessment & Plan (06/23/2020 2:46 PM MARKETING ACCOUNT EXECUTIVE): Blood pressure at time Type 2 diabetes mellitus wit hout complication, without long-term current use of insulin 03/17/2020 Assessment & Plan (06/23/2020 2:46 PM MARKETING ACCOUNT EXECUTIVE): Seems to lost 10 lb. A1c 10.5. Will add Farxiga 5 mg daily Hyperlipidemia 03/17/2020 Assessment & Plan (06/23/2020 2:46 PM MARKETING ACCOUNT EXECUTIVE): Lipid reviewed continue present Rx Pain in [...] on file Legal Sex Female 2:38 AM MARKETING ACCOUNT EXECUTIVE Gender Identity Not on file Sexual Orientation Not on file Last Filed Vital Signs Vital Sign Reading Time Taken Comments Blood Pressure 127/78 07/17/2024 2:08 PM MARKETING ACCOUNT EXECUTIVE Pulse 68 07/17/2024 2:08 PM MARKETING ACCOUNT EXECUTIVE Temperature 36.6 C (97.9 F) 07/17/2024 2:08 PM MARKETING ACCOUNT EXECUTIVE Respiratory Rate 16 07/17/2024 2:08 PM MARKETING ACCOUNT EXECUTIVE Oxygen Saturation 98% 07/17/2024 2:08 PM MARKETING ACCOUNT EXECUTIVE Inhaled Oxygen Concentration - - Weight 106.6 kg (235 lb 1.6 oz) 07/17/2024 2:08 PM MARKETING ACCOUNT EXECUTIVE Height 167.4 cm (5' 5.91 ) 07/17/2024 2:08 PM CS T Body Mass Index 38.05 07/17/2024 2:08 PM MARKETING ACCOUNT EXECUTIVE Plan of Treatment Not on file Procedures Procedure Name Priority Date/Time Associated Diagnosis Comments EGFR Routine 07/17/2024 12:22 PM MARKETING ACCOUNT EXECUTIVE Melanoma of back (HCC) DIFFERENTIAL AUTO Routine 07/17/2024 12:22 PM MARKETING ACCOUNT EXECUTIVE Melanoma of back (HCC) COMPREHENSIVE METABOLIC PANEL Routine 07/17/2024 12:22 PM MARKETING ACCOUNT EXECUTIVE Melanoma of back (HCC) CBC WITH AUTO DIFFERENTIAL Routine 07/17/2024 12:22 PM MARKETING ACCOUNT EXECUTIVE Melanoma of back (HCC) LACTATE DEHYDROGENASE Routine 07/17/2024 12:22 PM MARKETING ACCOUNT EXECUTIVE Melanoma of back (HCC) PET/CT FDG SKULL TO THIGH Schedule Routine, Read Routine (OP Routine) 07/17/2024 12:07 PM MARKETING ACCOUNT EXECUTIVE Melanoma of back (HCC) SCREENING MAMMOGRAM BILATERAL W YONI Schedule Routine, Read Routine (OP Routine) 10/25/2022 8:36 AM CDT Screening mammogram, encounter for COLONOSCOPY 04/21/2021 1:17 PM MARKETING ACCOUNT EXECUTIVE POCT HEMOGLOBIN A1C Routine 03/09/2021 1 :58 PM CDT Type 2 diabetes mellitus without complication, without long-term current use of insulin (HCC) Hyperlipidemia, unspecified hyperlipidemia type Essential hypertension POCT LIPID PANEL Routine 12/01/2020 2:40 PM CDT Hyperlipidemia, unspecified hyperlipidemia type from Last 3 Months or Most Recently Relevant to Health Maintenance Results * eGFR (07/17/2024 12:22 PM MARKETING ACCOUNT EXECUTIVE) eGFR 83 >=60 mL/min/1. 73 m2 Comment: [...] was last reviewed 2021. Testing performed by: [facility], [address] [place] [address] Blood 07/17/2024 12:2 2 PM MARKETING ACCOUNT EXECUTIVE 07/17/2024 12:31 PM MARKETING ACCOUNT EXECUTIVE us Angel Kelely NP LAB BLOOD ORDERABLES Leslye l Result [facility] [address] [facility]. [place] [address] * Differential, auto (07/17/2024 12:22 PM MARKETING ACCOUNT EXECUTIVE) Neutrophil abs 4.4 1.5 - 6.5 K/cumm Comment:Testing performed by : [facility], [facility] [address], [address] [place] [address] Imm gran abs 0.0 0.0 - 0.1 K/cumm [facility] Comment:Testing performed by : [facility], [facility], [address] [place] [address] Lymphocyte abs 1.8 0.8 - 3.3 K/cumm [facility] Comment:Testing performed by : [facility], [facility], [address] [place] [address] Monocyte abs 0.6 0.2 - 0.8 K/cumm [facility] Comment:Testing performed by : [facility], [facility], [address] [place] [address] Eosinophil abs 0.1 0.0 - 0.5 K/cumm [facility] Comment:Testing performed by : [facility], [facility], [address] [place] [address] Basophil abs 0.0 0.0 - 0.1 K/cumm [facility] Comment:Testing performed by : [facility], [facility], [address] [place] [address] Neutrophil pct 63.7 % [facility] Comment: Interpretive Data Percent cell count reference ranges are not reported, since discordance with absolute values may lead to misinterpretation of CBC data. Current Interpretive Data was last revised on 2017. Testing performed by: [facility], [facility], [address] [place] [address] Imm gran pct 0.4 % [facility] Comment: Interpretive Data Percent cell count reference ranges are not reported, since discordance with absolute values may lead to misinterpretation of CBC data. Current Interpretive Data was last revised on 2017. Testing performed by: [facility], [facility], [address], [place] [address] Lymphocyte pct 26.0 % [facility] Comment: Interpretive Data Percent cell count reference ranges are not reported, since discordance with absolute values may lead to misinterpretation of CBC data. Current Interpretive Data was last revised on 2017. Testing performed by: [facility], [facility], [address] [place] [address] Monocyte pct 8.2 % [facility] Comment: Interpretive Data Percent cell count reference ranges are not reported, since discordance with absolute values may lead to misinterpretation of CBC data. Current Interpretive Data was last revised on 2017. Testing performed by: [facility], [facility], [address] [place] [address] Eosinophil pct 1.3 % [facility] Comment: Interpretive Data Percent cell count reference ranges are not reported, since discordance with absolute values may lead to misinterpretation of CBC data. Current Interpretive Data was last revised on 2017. Testing performed by: [facility], [facility], [address] [place] [address] Basophil pct 0.4 % [facility] Comment: Interpretive Data Percent cell count reference ranges are not reported, since discordance with absolute values may lead to misinterpretation of CBC data. Current Interpretive Data was last revised on 2017. Testing performed by: [facility], [facility], [address] [place] [address] Blood 07/17/2024 12:2 2 PM MARKETING ACCOUNT EXECUTIVE 07/17/2024 12:23 PM MARKETING ACCOUNT EXECUTIVE Angel Kelley NP LAB BLOOD ORDERABLES Leslye l Result [facility] [address] [facility]. [place] [address] * CBC with auto differential (07/17/2024 12:22 PM MARKETING ACCOUNT EXECUTIVE) WBC 7.0 3.8 - 9.9 K/cumm Comment:Testing performed by : [facility], [facility], [address] [place] [address] Hgb 13.5 11.9 - 15.5 g/dL [facility] Comment:Testing performed by : [facility] 2, [address] [place] [address] Hct 40.7 35.6 - 45.5 % [facility] Comment:Testing performed by : [facility] 2, [address] [place] [address] Plt 177 150 - 400 K/cumm [facility] Comment:Testing performed by : [place] [address], [address] [place] [address] MPV 10.4 9.1 - 12.3 fL [facility] Comment:Testing performed by : [place] [address], [place] [address] RBC 4.53 3.90 - 5.20 M/cumm [facility] Comment:Testing performed by : [place] [address] [place] [address] MCV 90 81 - 96 fL [facility] Comment:Testing performed by : [place] [address], [place] [address] MCH 29.8 27.1 - 33.3 pg [facility] Comment:Testing performed by : [place] [address], [address], [place] [address] MCHC 33.2 32.3 - 35.7 g/dL [facility] Comment:Testing performed by : [place] [address], [address] [place] [address] RDW CV 13.2 11.1 - 14.9 % [facility] Comment:Testing performed by : [place] [address], [address] [place] [address] RDW SD 43.1 35.7 - 48.1 fL [facility] Comment:Testing performed by : [place] [address], [place] [address] Blood 07/17/2024 12:2 2 PM MARKETING ACCOUNT EXECUTIVE 07/17/2024 12:23 PM MARKETING ACCOUNT EXECUTIVE Angel Kelley NP LAB BLOOD ORDERABLES Leslye l Result Performing Organization Address [facility] de Phone Number [facility] [address] [place] [address] * Lactate dehydrogenase (LD) (07/17/2024 12:22 PM MARKETING ACCOUNT EXECUTIVE) Pathologist [facility] [place] Lactate dehydrogenase (LDH) 173 100 - 250 Units/L Comment:Testing performed by : [facility], [address], [place] [address] Blood 07/17/2024 12:2 2 PM MARKETING ACCOUNT EXECUTIVE 07/17/2024 12:31 PM MARKETING ACCOUNT EXECUTIVE Angel Kelley NP LAB BLOOD ORDERABLES Leslye l Result Performing Organization Address [facility] Phone Number [facility] [address] [facility] [place] [address] * Comprehensive metabolic panel (07/17/2024 12:22 PM MARKETING ACCOUNT EXECUTIVE) Pathologist [facility] [place] Sodium 139 135 - 145 mmol/L Comment:Testing performed by : [facility], [address], [place] [address] Potassium, pl 4.6 3.3 - 4.9 mmol/L [facility] Comment:Testing performed by : [facility], [address], [place] [address] Chloride 100 97 - 110 mmol/L [facility] Comment:Testing performed by : [facility], [address], [place] [address] CO2 28 22 - 32 mmol/L [facility] Comment:Testing performed by : [facility], [address], [place] [address] Anion gap 11 2 - 15 mmol/L [facility] Comment:Testing performed by : [facility], [address], [place] [address] BUN 15 6 - 25 mg/dL [facility] Comment:Testing performed by : [facility], [address], [place] [address] Creatinine 0.80 0.60 - 1.10 mg/dL [facility] Comment:Testing performed by : [facility], [address], [place] [address] Glucose 172 70 - 199 mg/dL [facility] [...] was last revised 2022. Testing performed by: [facility], [address], [place] [address] Calcium 9.9 8.5 - 10.3 mg/dL [facility] Comment:Testing performed by : [facility], [address], [place] [address] Bilirubin, total 0.3 0.1 - 1.2 mg/dL [facility] Comment:Testing performed by : [facility], [address], [place] [address] Protein, pl 7.2 6.5 - 8.5 g/dL [facility] Comment:Testing performed by : [facility], [address], [place] [address] Albumin 4.5 3.5 - 5.0 g/dL [facility] Comment:Testing performed by : [facility], [address], [place] [address] Alk phos 81 40 - 130 Units/L [facility] Comment:Testing performed by : [facility], [address], [place] [address] ALT 37 7 - 45 Units/L [facility] Comment:Testing performed by : [facility], [address] [place] [address] AST 20 10 - 45 Units/L [facility] Comment:Testing performed by : [facility], [address] [place] [address] Blood 07/17/2024 12:2 2 PM MARKETING ACCOUNT EXECUTIVE 07/17/2024 12:31 PM MARKETING ACCOUNT EXECUTIVE us Angel Kelley NP LAB BLOOD ORDERABLES Leslye abhay Result [facility] [address] [place] [address] * PET/CT FDG Skull to Thigh (07/17/2024 12:07 PM MARKETING ACCOUNT EXECUTIVE) Anatomical Region Laterality Modality N/A Positron Emissio n Tomography (PET) 07/17/2024 2:28 PM MARKETING ACCOUNT EXECUTIVE Impressions 07/17/2024 3:14 PM MARKETING ACCOUNT EXECUTIVE 1. No PET/CT evidence of locally recurrent or metastatic disease. 2. Resolution of previously visualized left greater than right waxing and waning groin/inguinal FDG avid cutaneous nodularity. Dictated by: Darius Mustafa M.D. The radiology attending physician has personally reviewed this study, and had reviewed and/or edited this written report and agrees with it. Electronically signed by: Herminio Jang MD Narrative 07/17/2024 3:14 PM MARKETING ACCOUNT EXECUTIVE EXAMINATION: TUMOR FDG-PET/CT IMAGING DATE OF STUDY: 07/17/2024 SCANNER: [facility] Mobile RADIOPHARMACEUTICAL: 15.5 mCi F-18 Fluorodeoxyglucose [...] obtained. The study was interpreted on the [employer] workstation. The mean liver SUV (reported for quality assurance lead purposes) is 2.5. The total scanned area [...] FDG-PET/CT IMAGING DATE OF STUDY: 07/17/2024 SCANNER: [facility] RADIOPHARMACEUTICAL: 15.5 mCi F-18 Fluorodeoxyglucose [...] obtained. The study was interpreted on the [employer] workstation. The mean liver SUV (reported for quality assurance lead purposes) is 2.5. The total scanned area [...] compared to prior imaging studies performed at [facility] on 10/11/2013 and 02/23/2021. The breasts are [...] compared to prior imaging studies performed at [facility] on 10/11/2013 and 02/23/2021. The breasts are heterogeneously dense, which may obscure small masses. There is no suspicious abnormality in either breast. Impression: There is no mammographic evidence of malignancy. Annual screening mammography is recommended. OVERALL FINAL ASSESSMENT: BI-RADS CATEGORY 1: Negative. us Self Screening Mammogram IMG MAMMO PROCEDURES Fi nal Result * COLONOSCOPY (04/21/2021 1:17 PM MARKETING ACCOUNT EXECUTIVE) Anatomical Region Laterality Modality Other Narrative Procedure Note Francesca Soares MD PhD - 04/21/2021 1:17 PM CST [facility] Patient Name: Leticia Baugh Procedure Date: 04/21/2021 1:17 PM Date of : 1960 Admit Type: Outpatient Age: 60 Gender: Female Attending MD: Francesca Soares MD,PHD Room: [facility] ENDOSCOPY ROOM 8 Note Status: Finalized Procedure: [...] The scope was passed under direct vision.The [id number] endoscope was introduced through the anus and advanced to the terminal ileum. The colonoscopy was performed without difficulty. The patient tolerated the procedure well. The qualityof the bowel preparation was excellent. The quality of the bowel preparation was evaluated using the BBPS (Royal Bowel Preparation Scale) with scores of:Right Colon [...] On: 04/21/2021 1:17 PM Recognized by the [employer] for promoting quality [...] Most Recently Relevant to Health Maintenance Insurance [employer] OOS ANTHEM ACCESS BLUE ACCESS OOS ANTHEM ACCESS [employer] ACCESS OOS * Guarantor: [employer] Account Type Relation to Patient Date of Phone Billing Address Workers Comp Employer WORKERS COMPENSATION GENERIC Advance Directives For more information, please contact: [phone] * Full Code (Latest Code Status on File) Date Activated Date Inactivated Comments 04/21/2021 12:30 PM 04/21/2021 6:41 PM Care Teams Education Officer Relationship Specialty Start Date End Date Rusty Bentley DO [address] [facility] [address] [place] [address] PCP - General Internal Medicine 04/25/23 Tiago Leblanc MD [address] [facility] [address] [place] [address] Medical Oncologist/Assistant Project Engineer Medical Oncology 02/02/21 Rusty Soares MD PhD [address] [facility] [address] [place] [address] Heater Operator Dermatology 08/01/22
--- OUTSIDE RECORDS SUMMARY | 2024-10-01 08:41 | XMS_ITS | Encounter Summary ---
Author Organization [facility] Address [address] [place] [address] Phone Care Team Providers Care Verify Rep Name Role Phone Tiago Leblanc MD Unavailable [phone] Rusty Soares MD PhD Unavailable No, Physician Primary Care Provider [phone] Rusty Bentley DO Unavailable [phone] Rusty Bentley DO Primary Care Provider [phone] Encounter Details Date Type Department Care Team (Late st Contact Info) Description 01/17/2023 Telephone [facility] Rheumatology [facility] 5th [place] [address] [place] [address] Samantha Wilks CMA Social History [...] on file Legal Sex Female 2:38 AM WATERSHED TENDER Gender Identity Not on file Sexual Orientation Not on file documented as of this encounter Plan of Treatment Not on file documented as of this encounter Visit Diagnoses Not on filedocumented in this encounter Care Teams Verify Rep Relationship Specialty Start Date End Date No, Physician PCP - General 10/22/22 04/24/23 Rusty Bentley DO PCP - General Internal Medicine 04/25/23 Tiago Leblanc MD [address] [facility] [address] [place] [address] Medical Oncologist/Business Continuity Analyst Medical Oncology 02/02/21 Rusty Soares MD PhD [address] [facility] [address] [place] [address] Production Quality Manager Dermatology 08/01/22 Rusty Bentley DO Internal Medicine 04/25/23 04/25/23 documented as of this encounter
--- OUTSIDE RECORDS SUMMARY | 2024-10-01 08:41 | XMS_ITS | Clinical Summary ---
Author Organization [facility] Address [address] [place] [address] Care Team Providers Care Inspector Aluminum Boat Name Role Phone Tiago Leblanc MD Unavailable [phone] Rusty Soares MD PhD Unavailable Rusty Bentley DO Primary Care Provider [phone] Allergies No known active allergies Medications venlafaxine [...] (01/30/2021): Added automatically from request for surgery [id number] Melanoma of back 12/20/2020 Skin lesion 08/25/2020 Essential hypertension 06/23/2020 Assessment & Plan (06/23/2020 2:46 PM MECHANICAL INTEGRITY ENGINEER): Blood pressure at time Type 2 diabetes mellitus wit hout complication, without long-term current use of insulin 03/17/2020 Assessment & Plan (06/23/2020 2:46 PM MECHANICAL INTEGRITY ENGINEER): Seems to lost 10 lb. A1c 10.5. Will add Farxiga 5 mg daily Hyperlipidemia 03/17/2020 Assessment & Plan (06/23/2020 2:46 PM MECHANICAL INTEGRITY ENGINEER): Lipid reviewed continue present Rx Pain in the coccyx 10/18/2016 Chronic obstructive pulmonary disease 10/11/2013 Mass of breast 10/11/2013 Encounters Date Type Department Care Team Description 07/18/2024 Telephone [facility] [address] [facility] [address] [place] [phone] Calvin Shelby 07/17/2024 2:00 PM MECHANICAL INTEGRITY ENGINEER Office Visit [facility] Oncology [address] [facility] [address] [place] [address] Tiago Leblanc MD Melanoma of back (HCC) 07/17/2024 1:00 PM MECHANICAL INTEGRITY ENGINEER Lab [facility] at [facility] [address] [facility] [place] [address] Melanoma of back (HCC) 07/17/2024 1:00 PM MECHANICAL INTEGRITY ENGINEER Lab [facility] Oncology [address] [facility] [address] [place] [address] Melanoma of back (HCC) 07/17/2024 10:54 AM MECHANICAL INTEGRITY ENGINEER - 07/17/2024 11:59 PM MECHANICAL INTEGRITY ENGINEER Hospital Encounter [facility] Imaging [address] [facility] Medical Office Building 2 [place] [address] Melanoma of back (HCC) Discharge Disposition: Discharge [...] on file Legal Sex Female 2:38 AM MECHANICAL INTEGRITY ENGINEER Gender Identity Not on file Sexual Orientation Not on file Obstetrics History Last Filed Vital Signs Vital Sign Reading Time Taken Comments Blood Pressure 127/78 07/17/2024 2:08 PM MECHANICAL INTEGRITY ENGINEER Pulse 68 07/17/2024 2:08 PM MECHANICAL INTEGRITY ENGINEER Temperature 36.6 C (97.9 F) 07/17/2024 2:08 PM MECHANICAL INTEGRITY ENGINEER Respiratory Rate 16 07/17/2024 2:08 PM MECHANICAL INTEGRITY ENGINEER Oxygen Saturation 98% 07/17/2024 2:08 PM MECHANICAL INTEGRITY ENGINEER Inhaled Oxygen Concentration - - Weight 106.6 kg (235 lb 1.6 oz) 07/17/2024 2:08 PM MECHANICAL INTEGRITY ENGINEER Height 167.4 cm (5' 5.91 ) 07/17/2024 2:08 PM CS T Body Mass Index 38.05 07/17/2024 2:08 PM MECHANICAL INTEGRITY ENGINEER Plan of Treatment Health Maintenance Due Date [...] 02/23/2021, 01/06/2018, Additional history exists Influenza Vaccine (Season Ended) 2025 02/17/2020, 02/03/2019, 03/20/2017, Additional history exists Pneumococcal vaccine [...] Diagnosis Comments EGFR Routine 07/17/2024 12:22 PM MECHANICAL INTEGRITY ENGINEER Melanoma of back (HCC) DIFFERENTIAL AUTO Routine 07/17/2024 12:22 PM MECHANICAL INTEGRITY ENGINEER Melanoma of back (HCC) COMPREHENSIVE METABOLIC PANEL Routine 07/17/2024 12:22 PM MECHANICAL INTEGRITY ENGINEER Melanoma of back (HCC) CBC WITH AUTO DIFFERENTIAL Routine 07/17/2024 12:22 PM MECHANICAL INTEGRITY ENGINEER Melanoma of back (HCC) LACTATE DEHYDROGENASE Routine 07/17/2024 12:22 PM MECHANICAL INTEGRITY ENGINEER Melanoma of back (HCC) PET/CT FDG SKULL TO THIGH Schedule Routine, Read Routine (OP Routine) 07/17/2024 12:07 PM MECHANICAL INTEGRITY ENGINEER Melanoma of back (HCC) SCREENING MAMMOGRAM BILATERAL W YONI Schedule Routine, Read Routine (OP Routine) 10/25/2022 8:36 AM CDT Screening mammogram, encounter for COLONOSCOPY 04/21/2021 1:17 PM MECHANICAL INTEGRITY ENGINEER POCT HEMOGLOBIN A1C Routine 03/09/2021 1 :58 PM CDT Type 2 diabetes mellitus without complication, without long-term current use of insulin (HCC) Hyperlipidemia, unspecified hyperlipidemia type Essential hypertension POCT LIPID PANEL Routine 12/01/2020 2:40 PM CDT Hyperlipidemia, unspecified hyperlipidemia type from Last 3 Months or Most Recently Relevant to Health Maintenance Results * eGFR (07/17/2024 12:22 PM MECHANICAL INTEGRITY ENGINEER) eGFR 83 >=60 mL/min/1. 73 m2 Comment: [...] was last reviewed 2021. Testing performed by: [facility], [address] [place] [address] Blood 07/17/2024 12:2 2 PM MECHANICAL INTEGRITY ENGINEER 07/17/2024 12:31 PM MECHANICAL INTEGRITY ENGINEER us Angel Kelley PAWN [employer]ER LAB BLOOD ORDERABLES Leslye blank Result [facility] [address] [facility]. Department of Laboratories [place], [place] [id number] * Differential, auto (07/17/2024 12:22 PM MECHANICAL INTEGRITY ENGINEER) Neutrophil abs 4.4 1.5 - 6.5 K/cumm Comment:Testing performed by : [facility] 2, [address] [place] [address] Imm gran abs 0.0 0.0 - 0.1 K/cumm [facility] Comment:Testing performed by : [facility] 2, [address] [place] [address] Lymphocyte abs 1.8 0.8 - 3.3 K/cumm [facility] Comment:Testing performed by : [facility] 2, [address] [place] [address] Monocyte abs 0.6 0.2 - 0.8 K/cumm [facility] Comment:Testing performed by : [facility] 2, [address] [place] [address] Eosinophil abs 0.1 0.0 - 0.5 K/cumm [facility] Comment:Testing performed by : [facility] 2, [address] [place] [address] Basophil abs 0.0 0.0 - 0.1 K/cumm [facility] Comment:Testing performed by : [facility] 2, [address] [place] [address] Neutrophil pct 63.7 % [facility] Comment: Interpretive Data Percent cell count reference ranges are not reported, since discordance with absolute values may lead to misinterpretation of CBC data. Current Interpretive Data was last revised on 2017. Testing performed by: [facility] 2, [address] [place] [address] Imm gran pct 0.4 % [facility] Comment: Interpretive Data Percent cell count reference ranges are not reported, since discordance with absolute values may lead to misinterpretation of CBC data. Current Interpretive Data was last revised on 2017. Testing performed by: [facility], [facility], [address] [place] [address] Lymphocyte pct 26.0 % [facility] Comment: Interpretive Data Percent cell count reference ranges are not reported, since discordance with absolute values may lead to misinterpretation of CBC data. Current Interpretive Data was last revised on 2017. Testing performed by: [facility], [facility] 2, [address] [place] [address] Monocyte pct 8.2 % [facility] [place] Comment: Interpretive Data Percent cell count reference ranges are not reported, since discordance with absolute values may lead to misinterpretation of CBC data. Current Interpretive Data was last revised on 2017. Testing performed by: [facility], [facility] 2, [address] [place] [address] Eosinophil pct 1.3 % [facility] Comment: Interpretive Data Percent cell count reference ranges are not reported, since discordance with absolute values may lead to misinterpretation of CBC data. Current Interpretive Data was last revised on 2017. Testing performed by: [facility], [facility] 2, [address] [place] [address] Basophil pct 0.4 % [facility] [place] Comment: Interpretive Data Percent cell count reference ranges are not reported, since discordance with absolute values may lead to misinterpretation of CBC data. Current Interpretive Data was last revised on 2017. Testing performed by: [facility], [facility] 2, [address] [place] [address] Blood 07/17/2024 12:2 2 PM MECHANICAL INTEGRITY ENGINEER 07/17/2024 12:23 PM MECHANICAL INTEGRITY ENGINEER Angel Kelley NP LAB BLOOD ORDERABLES Leslye l Result [facility] [address] [place] [address] * CBC with auto differential (07/17/2024 12:22 PM MECHANICAL INTEGRITY ENGINEER) [facility] WBC 7.0 3.8 - 9.9 K/cumm Comment:Testing performed by : [place] [address], [address] [place] [address] Hgb 13.5 11.9 - 15.5 g/dL [facility] Comment:Testing performed by : [place] [address], [address] [place] [address] Hct 40.7 35.6 - 45.5 % [facility] Comment:Testing performed by : [place] [address], [place] [address] Plt 177 150 - 400 K/cumm [facility] Comment:Testing performed by : [place] [address], [address] [place] [address] MPV 10.4 9.1 - 12.3 fL [facility] Comment:Testing performed by : [place] [address], [address] [place] [address] RBC 4.53 3.90 - 5.20 M/cumm [facility] Comment:Testing performed by : [address] [place] [address] MCV 90 81 - 96 fL [facility] Comment:Testing performed by : [place] [address], [address] [place] [address] MCH 29.8 27.1 - 33.3 pg [facility] Comment:Testing performed by : [place] [address], [address] [place] [address] MCHC 33.2 32.3 - 35.7 g/dL [facility] Comment:Testing performed by : [place] [address], [address] [place] [address] RDW CV 13.2 11.1 - 14.9 % [facility] Comment:Testing performed by : [facility], [facility] 2, [address] [place] [address] RDW SD 43.1 35.7 - 48.1 fL [facility] [place] Comment:Testing performed by : [facility], [facility], [address] [place] [address] Blood 07/17/2024 12:2 2 PM MECHANICAL INTEGRITY ENGINEER 07/17/2024 12:23 PM MECHANICAL INTEGRITY ENGINEER Angel Kelley NP LAB BLOOD ORDERABLES Leslye l Result Performing Organization Address [facility] Co de Phone Number [facility] [address] [facility]. [facility] [employer] [place] [phone] * Lactate dehydrogenase (LD) (07/17/2024 12:22 PM MECHANICAL INTEGRITY ENGINEER) Pathologist [facility] Lactate dehydrogenase (LDH) 173 100 - 250 Units/L Comment:Testing performed by : [facility], [address] [place] [address] Blood 07/17/2024 12:2 2 PM MECHANICAL INTEGRITY ENGINEER 07/17/2024 12:31 PM MECHANICAL INTEGRITY ENGINEER Angel Kelley NP LAB BLOOD ORDERABLES Leslye l Result Performing Organization Address City/[facility] Co de Phone Number [facility] [address] [facility]. [facility] [employer] [place] [phone] * Comprehensive metabolic panel (07/17/2024 12:22 PM MECHANICAL INTEGRITY ENGINEER) Sodium 139 135 - 145 mmol/L Comment:Testing performed by : [facility], [address] [place] [address] Potassium, pl 4.6 3.3 - 4.9 mmol/L [facility] Comment:Testing performed by : [facility], [address], [place] [address] Chloride 100 97 - 110 mmol/L [facility] Comment:Testing performed by : [facility], [address], [place] [address] CO2 28 22 - 32 mmol/L [facility] Comment:Testing performed by : [facility], [address], [place] [address] Anion gap 11 2 - 15 mmol/L [facility] Comment:Testing performed by : [facility], [address], [place] [address] BUN 15 6 - 25 mg/dL [facility] Comment:Testing performed by : [facility], [address], [place] [address] Creatinine 0.80 0.60 - 1.10 mg/dL [facility] Comment:Testing performed by : [facility], [address], [place] [address] Glucose 172 70 - 199 mg/dL CERNER [...] was last revised 2022. Testing performed by: [facility], [address], [place] [address] Calcium 9.9 8.5 - 10.3 mg/dL [facility] Comment:Testing performed by : [facility], [address], [place] [address] Bilirubin, total 0.3 0.1 - 1.2 mg/dL [facility] Comment:Testing performed by : [facility], [address], [place] [address] Protein, pl 7.2 6.5 - 8.5 g/dL [facility] Comment:Testing performed by : [facility], [address], [place] [address] Albumin 4.5 3.5 - 5.0 g/dL [facility] Comment:Testing performed by : [facility], [address], [place] [address] Alk phos 81 40 - 130 Units/L [facility] Comment:Testing performed by : [facility], [address], [place] [address] ALT 37 7 - 45 Units/L [facility] Comment:Testing performed by : [facility], [address], [place] [address] AST 20 10 - 45 Units/L [facility] Comment:Testing performed by : [facility], [address], [place] [address] Blood 07/17/2024 12:2 2 PM MECHANICAL INTEGRITY ENGINEER 07/17/2024 12:31 PM MECHANICAL INTEGRITY ENGINEER us Angel Kelley NP LAB BLOOD ORDERABLES Leslye l Result [facility] [address] [place] [address] * PET/CT FDG Skull to Thigh (07/17/2024 12:07 PM MECHANICAL INTEGRITY ENGINEER) Anatomical Region Laterality Modality N/A Positron Emissio n Tomography (PET) 07/17/2024 2:28 PM MECHANICAL INTEGRITY ENGINEER Impressions 07/17/2024 3:14 PM MECHANICAL INTEGRITY ENGINEER 1. No PET/CT evidence of locally recurrent or metastatic disease. 2. Resolution of previously visualized left greater than right waxing and waning groin/inguinal FDG avid cutaneous nodularity. Dictated by: Darius Mustafa M.D. The radiology attending physician has personally reviewed this study, and had reviewed and/or edited this written report and agrees with it. Electronically signed by: Herminio Jang MD Narrative 07/17/2024 3:14 PM MECHANICAL INTEGRITY ENGINEER EXAMINATION: TUMOR FDG-PET/CT IMAGING DATE OF STUDY: 07/17/2024 SCANNER: [facility] Mobile RADIOPHARMACEUTICAL: 15.5 mCi F-18 Fluorodeoxyglucose [...] obtained. The study was interpreted on the [employer] workstation. The mean liver SUV (reported for research associate quality control qc purposes) is 2.5. The total scanned area [...] FDG-PET/CT IMAGING DATE OF STUDY: 07/17/2024 SCANNER: [facility] RADIOPHARMACEUTICAL: 15.5 mCi F-18 Fluorodeoxyglucose [...] obtained. The study was interpreted on the [employer] workstation. The mean liver SUV (reported for research associate quality control qc purposes) is 2.5. The total scanned area [...] to prior imaging studies performed at [facility] on 10/11/2013 and 02/23/2021. The breasts [...] to prior imaging studies performed at [facility] on 10/11/2013 and 02/23/2021. The breasts are heterogeneously dense, which may obscure small masses. There is no suspicious abnormality in either breast. Impression: There is no mammographic evidence of malignancy. Annual screening mammography is recommended. OVERALL FINAL ASSESSMENT: BI-RADS CATEGORY 1: Negative. us Self Screening Mammogram IMG MAMMO PROCEDURES Fi nal Result * COLONOSCOPY (04/21/2021 1:17 PM MECHANICAL INTEGRITY ENGINEER) Anatomical Region Laterality Modality Other Narrative Procedure Note Francesca Soares MD PhD - 04/21/2021 1:17 PM [facility] Patient Name: Leticia Baugh Procedure Date: 04/21/2021 1:17 PM Date of : 1960 Admit Type: Outpatient Age: 60 Gender: Female Attending MD: Francesca Soares MD,PHD Room: [facility] ENDOSCOPY ROOM 8 Note Status: Finalized Procedure: [...] The scope was passed under direct vision.The [id number] endoscope was introduced through the anus and advanced to the terminal ileum. The colonoscopy was performed without difficulty. The patient tolerated the procedure well. The qualityof the bowel preparation was excellent. The quality of the bowel preparation was evaluated using the BBPS (Seney Bowel Preparation Scale) with scores of:Right Colon [...] On: 04/21/2021 1:17 PM Recognized by the [employer] for promoting quality [...] Most Recently Relevant to Health Maintenance Insurance BLUE MYFX OOS ANTH ACCESS Reflektion OOS ANTHEM ACCESS BLUE ACCESS OOS * Guarantor: WINDY SILVERIO Account Type Relation to Patient Date of Phone Billing Address Workers Comp Employer WORKERS COMPENSATION GENERIC Advance Directives For more information, please contact: [phone] * Full Code (Latest Code Status on File) Date Activated Date Inactivated Comments 04/21/2021 12:30 PM 04/21/2021 6:41 PM Care Teams Inspector Aluminum Boat Relationship Specialty Start Date End Date Rusty Bentley DO [address] [facility] [address] [place] [address] PCP - General Internal Medicine 04/25/23 Tiago Leblanc MD [address] [facility] [address] [place] [address] Medical Oncologist/Rn Orthopaedic Medical Oncology 02/02/21 Rusty Soares MD PhD [address] [facility] [address] [place] [address] Diagnostic Medical Sonographer Dermatology 08/01/22
--- OUTSIDE RECORDS SUMMARY | 2024-10-01 08:41 | XMS_ITS ---
Author Organization [facility] Address [address] [place] [address] Care Team Providers Care Scheduling Manager Name Role Phone iTago Leblanc MD Unavailable [phone] Rusty Soares MD PhD Unavailable Rusty Bentley DO Primary Care Provider [phone] Active Problems Problem Noted Date Diagnosed Date Family history of colon cancer 01/30/2021 Overview (01/30/2021): Added automatically from request for surgery [id number] Melanoma of back 12/20/2020 Skin lesion 08/25/2020 Essential hypertension 06/23/2020 Assessment & Plan (06/23/2020 2:46 PM DRILL PUNCH OPERATOR): Blood pressure at time Type 2 diabetes mellitus wit hout complication, without long-term current use of insulin 03/17/2020 Assessment & Plan (06/23/2020 2:46 PM DRILL PUNCH OPERATOR): Seems to lost 10 lb. A1c 10.5. Will add Farxiga 5 mg daily Hyperlipidemia 03/17/2020 Assessment & Plan (06/23/2020 2:46 PM DRILL PUNCH OPERATOR): Lipid reviewed continue present Rx Pain in [...]
--- OUTSIDE RECORDS SUMMARY | 2024-10-01 08:41 | XMS_ITS | Clinical Summary ---
Author Organization [facility] Address [facility] [facility] [place] [address] Care Team Providers Care Wrapper Sizer Name Role Phone Patrick Coronado MD Primary Care Provider Unavailabl e Source Comments [facility],non-owned Affiliates and Associated Physician Practices is amultiple site organization consisting of ambulatory clinics and hospital sitesin [place], [place], [place] and [place]. This disclosure is being madepursuant to the Care Everywhere program and may not contain all information available regarding this patient. Last updated 18.[facility] Allergies No known active allergies Medications * Be aware that medications may not be up to date on this document. Alwaysverify current medications with the patient. metFORMIN (GLUCOPHAGE) 1000 MG tablet Take 1,000 mg by mouth 2 times daily with morning and evening meal Active SITagliptin (JANUVIA) 100 MG tablet Take 100 mg by mouth once daily Active ADVAIR DISKUS 250-50 MCG/DOSE inhaler INHALE 1 DOSE BY MOUTH TWICE DAILY. RINSE MOUTH AFTER USE 0 8 Active venlafaxine XR 24hr (EFFEXOR XR) 150 MG capsule Take 150 mg by mouth once daily 1 8 Active PROAIR HFA 108 (90 BASE) MCG/ACT inhaler INHALE 1 - 2 PUFFS BY MOUTH EVERY 4 HOURS NEEDED FOR SHORTNESS OF BREATH 2 8 Active estradiol-noret hindrone (ACTIVELLA) 0.5-0.1 MG tablet Take 1 tablet by mouth once daily 30 tablet 3 8 Active Family History Medical History Relation Name Comments Cancer - Breast Maternal Aunt Relation Name Status Comments Maternal Aunt Social History Tobacco Use Types Packs/Day Years Used Date Smoking Tobacco: Every Day Cigarettes Smokeless Tobacco: Never Alcohol Use Standard Drinks/Week Comments Yes 0 (1 standard drink = 0.6 oz pur e alcohol) social drinker Comments No Sex and Gender Information Value Date Recorded Sex Assigned at Not on file Legal Sex Female 1:25 PM CDT Gender Identity Not on file Sexual Orientation Not on file 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 PRIOR: 2013 and 2011 [facility] now available BREAST PARENCHYMAL DENSITY: The breasts are heterogeneously dense, which may obscure small masses. RISK ASSESSMENT CALCULATION: Based on the information provided by your patient, her lifetime risk of breast cancer is average (<15%). Additional quantitative risk model data and patient history details have been scanned as a document/letter in [facility] electronic medical record (media tab). Please note this information is only as accurate as the data entered by the patient. FINDINGS: No suspicious masses, areas of architectural distortion or microcalcifications are evident on 2-D images. There has been no significant interval change since the prior examination. Rancho Bernard MD MAMMO ORDERABLES Final Result * HPV DETECTION HIGH RISK AKHIL (12/30/2017 3:07 PM CDT) High Risk Human Papilloma Result Not Detected Not Detected 01/03/2018 9:10 AM CDT [facility] High Risk Human Papilloma Interp 01/03/2018 9:10 AM CDT [facility] Comment:High Risk Human Hank lloma Virus was Not Detected. Pathology/Cytolo gy MISCELLANEOUS SAMPLES / Unknown 12/30/2017 3:07 PM CDT 01/02/2018 12:18 PM CDT Narrative [facility] - 01/03/2018 9:10 AM CDT [...] information). Rancho Bernard MD LAB - MICROBIOLOGY ORDERABLES Fi nal Result Performing Organization Address City/State/[facility] de Phone Number [facility] [address] [phone] from Last 3 Months or Most Recently Relevant to Health Maintenance Insurance FELIPE ANTHEM Care Teams Wrapper Sizer Relationship Specialty Start Date End Date Patrick Coronado MD PCP - General 11/15/17
[2024-10-01 11:37] LABS: Hemoglobin A1C 10.6 % (<5.7)
[2024-10-01 11:49] LABS: Cholesterol 226 mg/dL (0-200); HDL Direct 48 mg/dL; Triglycerides 210 mg/dL (<150)
[2024-10-01 12:00] LABS: LDL Cholesterol Direct 126 mg/dL
[2024-10-01 12:06] LABS: Creatinine Urine 80.7 mg/dL
[2024-10-01 12:08] LABS: MALB Creatinine Ratio 177.3 mg/g (0-30); Microalbumin Urine Random 143.1 mg/L (0-16.7)
== END 2024-10-01 08:28 | disposition home or self-care (01) ==
LOC: ANHGOSHLAB 08:28
PROVIDERS: PCP Internal Medicine; Visit Provider Internal Medicine
DX: E11.65 Type 2 diabetes mellitus with hyperglycemia (principal)
CPT/HCPCS: 36415; 80061; 82043; 82172; 83036

== ENCOUNTER 2024-10-01 09:20 | Outpatient (CLI) | payer BC, SELFPAY ==
--- NOTE | ~2024-10-01 | XR_ITS ---
XR knee LT 3V Ordering provider: Rusty Bentley DO History: . M25.562 - Pain in left knee . Comparison: None. FINDINGS: BONES: No acute fracture or dislocation. Bone island seen in the proximal left tibia. JOINT SPACES: Narrowing of the medial compartment. SOFT TISSUES: Normal. IMPRESSION: No acute osseous abnormality left knee. Severe osteoarthritic changes Reviewed, dictated and finalized at location A.
== END 2024-10-01 09:21 | disposition home or self-care (01) ==
LOC: GOSHIMG 09:21
PROVIDERS: PCP Internal Medicine; Visit Provider Internal Medicine
DX: M17.12 Unilateral primary osteoarthritis, left knee (principal)
CPT/HCPCS: 73562

== ENCOUNTER 2024-11-12 08:47 | Outpatient (CLI) | payer BC, SELFPAY ==
--- OUTSIDE RECORDS SUMMARY | 2024-11-12 09:11 | XMS_ITS | Referral Summary ---
Author Organization [facility] Address [address] [place] [address] Care Team Providers Care Nursing Home Assistant Administrator Name Role Phone Tiago Leblanc MD Unavailable [phone] Rusty Soares MD PhD Unavailable Rusty Bentley DO Primary Care Provider [phone] Allergies No known active allergies Medications venlafaxine [...] (01/30/2021): Added automatically from request for surgery [id number] Melanoma of back 12/20/2020 Skin lesion 08/25/2020 Essential hypertension 06/23/2020 Assessment & Plan (06/23/2020 2:46 PM CORK TIPPER): Blood pressure at time Type 2 diabetes mellitus wit hout complication, without long-term current use of insulin 03/17/2020 Assessment & Plan (06/23/2020 2:46 PM CORK TIPPER): Seems to lost 10 lb. A1c 10.5. Will add Farxiga 5 mg daily Hyperlipidemia 03/17/2020 Assessment & Plan (06/23/2020 2:46 PM CORK TIPPER): Lipid reviewed continue present Rx Pain in [...] Used Date Smoking Tobacco: Former Cigarettes 0.5 33.4 S tarted: 1991 Smokeless Tobacco: Never Tobacco [...] on file Legal Sex Female 2:38 AM CORK TIPPER Gender Identity Not on file Sexual Orientation Not on file Last Filed Vital Signs Vital Sign Reading Time Taken Comments Blood Pressure 127/78 07/17/2024 2:08 PM CORK TIPPER Pulse 68 07/17/2024 2:08 PM CORK TIPPER Temperature 36.6 C (97.9 F) 07/17/2024 2:08 PM CORK TIPPER Respiratory Rate 16 07/17/2024 2:08 PM CORK TIPPER Oxygen Saturation 98% 07/17/2024 2:08 PM CORK TIPPER Inhaled Oxygen Concentration - - Weight 106.6 kg (235 lb 1.6 oz) 07/17/2024 2:08 PM CORK TIPPER Height 167.4 cm (5' 5.91) 07/17/2024 2:08 PM CS T Body Mass Index 38.05 07/17/2024 2:08 PM CORK TIPPER Plan of Treatment Not on file Procedures Procedure Name Priority Date/Time Associated Diagnosis Comments EGFR Routine 07/17/2024 12:22 PM CORK TIPPER Melanoma of back (HCC) SCREENING MAMMOGRAM BILATERAL W MARY Schedule Routine, Read Routine (OP Routine) 10/25/2022 8:36 AM CDT Screening mammogram, encounter for COLONOSCOPY 04/21/2021 1:17 PM CORK TIPPER POCT HEMOGLOBIN A1C Routine 03/09/2021 1:58 PM CDT Type 2 diabetes mellitus without complication, without long-term current use of insulin (HCC) Hyperlipidemia, unspecified hyperlipidemia type Essential hypertension POCT LIPID PANEL Routine 12/01/2020 2:40 PM CDT Hyperlipidemia, unspecified hyperlipidemia type from Last 3 Months or Most Recently Relevant to Health Maintenance Results * eGFR (07/17/2024 12:22 PM CORK TIPPER) eGFR 83 >=60 mL/min/1. 73 m2 Comment: [...] was last reviewed 2021. Testing performed by: [facility], [address] [facility], [place] [address] Blood 07/17/2024 12:2 2 PM CORK TIPPER 07/17/2024 12:31 PM CORK TIPPER us Angel Kelley NP LAB BLOOD ORDERABLES Leslye blank Result [facility] [id number] [facility]. [place] [address] * Screening Mammogram Bilateral W Mary (10/25/2022 8:36 AM CDT) Anatomical Region Laterality Modality Breast Bilateral Mammography Narrative 10/26/2022 1:53 PM CDT Mammogram Technique: Bilateral Digital Breast Tomosynthesis, Bilateral C-view 2D Screening mammogram. Views obtained: bilateral craniocaudal and bilateral mediolateral oblique. Computer Aided Detection was performed. Mammogram Findings: The present examination has been compared to prior imaging studies performed at [facility] on 10/11/2013 and 02/23/2021. The breasts [...] compared to prior imaging studies performed at [facility] on 10/11/2013 and 02/23/2021. The breasts are heterogeneously dense, which may obscure small masses. There is no suspicious abnormality in either breast. Impression: There is no mammographic evidence of malignancy. Annual screening mammography is recommended. OVERALL FINAL ASSESSMENT: BI-RADS CATEGORY 1: Negative. us Self Screening Mammogram IMG MAMMO PROCEDURES Fi nal Result * COLONOSCOPY (04/21/2021 1:17 PM CORK TIPPER) Anatomical Region Laterality Modality Other Narrative Procedure Note Francesca Soares MD PhD - 04/21/2021 1:17 PM CST [facility] ENDOSCOPY [facility] Patient Name: Leticia Baugh Procedure Date: 04/21/2021 1:17 PM Date of : 1960 Admit Type: Outpatient Age: 60 Gender: Female Attending MD: Francesca Soares MD,PHD Room: [facility] ENDOSCOPY ROOM 8 Note Status: Finalized [...] The scope was passed under direct vision.The [id number] endoscope was introduced through the anus and advanced to the terminal ileum. The colonoscopy was performed without difficulty. The patient tolerated the procedure well. The qualityof the bowel preparation was excellent. The quality of the bowel preparation was evaluated using the BBPS ([place] Bowel Preparation Scale) with scores of:Right Colon [...] On: 04/21/2021 1:17 PM Recognized by the [place] Society for Gastrointestinal Endoscopy for promoting quality [...] Most Recently Relevant to Health Maintenance Insurance [email or web address] OOS [email or web address] OOS ANTHEM ACCESS * Guarantor: WINDY SILVERIO Account Type Relation to Patient Date of Phone Billing Address Workers Comp Employer WORKERS COMPENSATION GENERIC Advance Directives For more information, please contact: [phone] * Full Code (Latest Code Status on File) Date Activated Date Inactivated Comments 04/21/2021 12:30 PM 04/21/2021 6:41 PM Care Teams Nursing Home Assistant Administrator Relationship Specialty Start Date End Date Rusty Bentley DO [address] [facility] [address] [place] [address] PCP - General Internal Medicine 04/25/23 Tiago Leblanc MD [address] [facility] [address] [place] [address] Medical Oncologist/Event Planner Medical Oncology 02/02/21 Rusty Soares MD PhD [address] [facility] [address] [place] [address] Senior Microstrategy Developer Dermatology 08/01/22
--- OUTSIDE RECORDS SUMMARY | 2024-11-12 09:11 | XMS_ITS | Clinical Summary ---
Author Organization [facility] Address [address] [place] [address] Care Team Providers Care Keyboarding Clerk Name Role Phone Tiago Leblanc MD Unavailable [phone] Rusty Soares MD PhD Unavailable Rusty Bentley DO Primary Care Provider [phone] Allergies No known active allergies Medications venlafaxine [...] (01/30/2021): Added automatically from request for surgery [id number] Melanoma of back 12/20/2020 Skin lesion 08/25/2020 Essential hypertension 06/23/2020 Assessment & Plan (06/23/2020 2:46 PM LEAD SIMULATION MODELING ENGINEER): Blood pressure at time Type 2 diabetes mellitus wit hout complication, without long-term current use of insulin 03/17/2020 Assessment & Plan (06/23/2020 2:46 PM LEAD SIMULATION MODELING ENGINEER): Seems to lost 10 lb. A1c 10.5. Will add Farxiga 5 mg daily Hyperlipidemia 03/17/2020 Assessment & Plan (06/23/2020 2:46 PM LEAD SIMULATION MODELING ENGINEER): Lipid reviewed continue present Rx Pain [...] on file Legal Sex Female 2:38 AM LEAD SIMULATION MODELING ENGINEER Gender Identity Not on file Sexual Orientation Not on file Obstetrics History Last Filed Vital Signs Vital Sign Reading Time Taken Comments Blood Pressure 127/78 07/17/2024 2:08 PM LEAD SIMULATION MODELING ENGINEER Pulse 68 07/17/2024 2:08 PM LEAD SIMULATION MODELING ENGINEER Temperature 36.6 C (97.9 F) 07/17/2024 2:08 PM LEAD SIMULATION MODELING ENGINEER Respiratory Rate 16 07/17/2024 2:08 PM LEAD SIMULATION MODELING ENGINEER Oxygen Saturation 98% 07/17/2024 2:08 PM LEAD SIMULATION MODELING ENGINEER Inhaled Oxygen Concentration - - Weight 106.6 kg (235 lb 1.6 oz) 07/17/2024 2:08 PM LEAD SIMULATION MODELING ENGINEER Height 167.4 cm (5' 5.91) 07/17/2024 2:08 PM CS T Body Mass Index 38.05 07/17/2024 2:08 PM LEAD SIMULATION MODELING ENGINEER Plan of Treatment Health Maintenance Due [...] 02/16/2025 02/17/2020, 02/03/2019, 07/15/2014 eGFR 07/17/2025 07/17/2024, 0811/2023, 07/12/2023, Additional history exists Colon Cancer Screening-Colonoscopy 04/21/2031 04/21/2021, 04/19/2016, 08/18/2012 Colon Cancer Screening-CT Colonography Discontinued 04/21/2021, 04/19/2016, 08/18/2012 Colon Cancer Screening-DNA Stool Discontinued 04/21/2021, 04/19/2016, 08/18/2012 Colon Cancer Screening-FIT Discontinued 04/21, 04/19/2016, 08/18/2012 Colon Cancer Screening-Sigmoidoscopy Discontinued 04/21/2021, 04/19/2016, 08/18/2012 Procedures Procedure Name Priority Date/Time Associated Diagnosis Comments EGFR Routine 07/17/2024 12:22 PM LEAD SIMULATION MODELING ENGINEER Melanoma of back (HCC) SCREENING MAMMOGRAM BILATERAL W MARY Schedule Routine, Read Routine (OP Routine) 10/25/2022 8:36 AM CDT Screening mammogram, encounter for COLONOSCOPY 04/21/2021 1:17 PM LEAD SIMULATION MODELING ENGINEER POCT HEMOGLOBIN A1C Routine 03/09/2021 1:58 PM CDT Type 2 diabetes mellitus without complication, without long-term current use of insulin (HCC) Hyperlipidemia, unspecified hyperlipidemia type Essential hypertension POCT LIPID PANEL Routine 12/01/2020 2:40 PM CDT Hyperlipidemia, unspecified hyperlipidemia type from Last 3 Months or Most Recently Relevant to Health Maintenance Results * eGFR (07/17/2024 12:22 PM LEAD SIMULATION MODELING ENGINEER) eGFR 83 >=60 mL/min/1. 73 m2 [...] was last reviewed 2021. Testing performed by: [facility], [address] [place] [address] Blood 07/17/2024 12:2 2 PM LEAD SIMULATION MODELING ENGINEER 07/17/2024 12:31 PM LEAD SIMULATION MODELING ENGINEER Angel Kelley NP LAB BLOOD ORDERABLES Leslye l Result [facility] [id number] [facility]. [place] [address] * Screening Mammogram Bilateral W Mary (10/25/2022 8:36 AM CDT) Anatomical Region Laterality Modality Breast Bilateral Mammography Narrative 10/26/2022 1:53 PM CDT Mammogram Technique: Bilateral Digital Breast Tomosynthesis, Bilateral C-view 2D Screening mammogram. Views obtained: bilateral craniocaudal and bilateral mediolateral oblique. Computer Aided Detection was performed. Mammogram Findings: The present examination has been compared to prior imaging studies performed at [facility] on 10/11/2013 and 02/23/2021. The breasts are [...] compared to prior imaging studies performed at [facility] on 10/11/2013 and 02/23/2021. The breasts are heterogeneously dense, which may obscure small masses. There is no suspicious abnormality in either breast. Impression: There is no mammographic evidence of malignancy. Annual screening mammography is recommended. OVERALL FINAL ASSESSMENT: BI-RADS CATEGORY 1: Negative. Self Screening Mammogram IMG MAMMO PROCEDURES Fi nal Result * COLONOSCOPY (04/21/2021 1:17 PM LEAD SIMULATION MODELING ENGINEER) Anatomical Region Laterality Modality Other Narrative Procedure Note Francesca Soares MD PhD - 04/21/2021 1:17 PM CST [facility] Patient Name: Leticia Baugh Procedure Date: 04/21/2021 1:17 PM Date of : 1960 Admit Type: Outpatient Age: 60 Gender: Female Attending MD: Francesca Soares MD,PHD Room: [facility] ENDOSCOPY ROOM 8 Note Status: Finalized [...] The scope was passed under direct vision.The CF [id number] endoscope was introduced through the anus and advanced to the terminal ileum. The colonoscopy was performed without difficulty. The patient tolerated the procedure well. The qualityof the bowel preparation was excellent. The quality of the bowel preparation was evaluated using the BBPS ([place] Bowel Preparation Scale) with scores of:Right Colon [...] On: 04/21/2021 1:17 PM Recognized by the [place] Society for Gastrointestinal Endoscopy for promoting quality in endoscopy us Francesca Soares MD PhD ENDOSCOPY PROCEDURES Leslye l Result * POCT hemoglobin A1c (03/09/2021 1:58 PM CDT) Hemoglobin A1C, POC 9.9 Blood specimen (specimen) 03/09/2021 1:58 PM CDT us Torito Hoover MD POINT OF CARE TEST ORDERABLES Final Result * POCT lipid panel (12/01/2020 2:40 PM CDT) Cholesterol, POC 189 mg/dL HDL, POC 37 mg/dL Triglycerides, POC 269 mg/dL LDL Cholesterol POC 98 mg/dL Capillary blood 12/01/2020 2 :40 PM CDT us Torito Hoover MD POINT OF CARE TEST ORDERABLES Final Result from Last 3 Months or Most Recently Relevant to Health Maintenance Insurance [employer] OOS BLUE ACCESS OOS ANTHEM ACCESS BLUE ACCESS OOS * Guarantor: [employer] Account Type Relation to Patient Date of Phone Billing Address Workers Comp Employer WORKERS COMPENSATION GENERIC Advance Directives For more information, please contact: [phone] * Full Code (Latest Code Status on File) Date Activated Date Inactivated Comments 04/21/2021 12:30 PM 04/21/2021 6:41 PM Care Teams Keyboarding Clerk Relationship Specialty Start Date End Date Rusty Bentley DO [address] [employer] [facility] [address] [place] [address] PCP - General Internal Medicine 04/25/23 Tiago Leblanc MD [address] [employer] [facility] [address] [place] [address] Medical Oncologist/Mapping Editor Medical Oncology 02/02/21 Rusty Soares MD PhD [address] [facility] [address] [place] [address] Front Desk Admin Dermatology 08/01/22
--- OUTSIDE RECORDS SUMMARY | 2024-11-12 09:11 | XMS_ITS | Encounter Summary ---
Author Organization [facility] Address [address] [place] [address] Phone Care Team Providers Care Physical Design Engineer Name Role Phone Tiago Leblanc MD Unavailable [phone] Rusty Soares MD PhD Unavailable No, Physician Primary Care Provider [phone] Rusty Bentley DO Unavailable [phone] Rusty Bentley DO Primary Care Provider [phone] Encounter Details Date Type Department Care Team (Late st Contact Info) Description 01/17/2023 Telephone [facility] Rheumatology [facility] [facility] 5th [place] [address] [place] [address] Samantha Wilks CMA Social History Tobacco Use Types Packs/Day Years Used Date Smoking Tobacco: Every Day Cigarettes 0.5 33.4 Started: 1991 Smokeless Tobacco: Never Comments:Smoking History [...] on file Legal Sex Female 2:38 AM PRESSING DEPARTMENT SUPERVISOR Gender Identity Not on file Sexual Orientation Not on file documented as of this encounter Plan of Treatment Not on file documented as of this encounter Visit Diagnoses Not on filedocumented in this encounter Care Teams Physical Design Engineer Relationship Specialty Start Date End Date No, Physician PCP - General 10/22/22 04/24/23 Rusty Bentley DO PCP - General Internal Medicine 04/25/23 Tiago Leblanc MD [address] [facility] [address] [place] [address] Medical Oncologist/Business Office Representative Medical Oncology 02/02/21 Rusty Soares MD PhD [address] [facility] [address] [place] [address] Clinical Trials Systems Administrator Dermatology 08/01/22 Rusty Bentley DO Internal Medicine 04/25/23 04/25/23 documented as of this encounter
--- OUTSIDE RECORDS SUMMARY | 2024-11-12 09:11 | XMS_ITS | Clinical Summary ---
Author Organization [facility] [employer] Address [facility] [facility] [place] [address] Care Team Providers Care Clinical Unit Coordinator Name Role Phone Patrick Coronado MD Primary Care Provider Unavailabl e Source Comments [facility] [employer]non-owned Affiliates and Associated Physician Practices is amultiple site organization consisting of ambulatory clinics and hospital sitesin [place], [place], [place] and [place]. This disclosure is being madepursuant to the Care Everywhere program and may not contain all information available regarding this patient. Last updated 18.[facility] [employer] 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 PRIOR: 2013 and 2011 [facility] now available BREAST PARENCHYMAL DENSITY: The breasts are heterogeneously dense, which may obscure small masses. RISK ASSESSMENT CALCULATION: Based on the information provided by your patient, her lifetime risk of breast cancer is average (<15%). Additional quantitative risk model data and patient history details have been scanned as a document/letter in [facility] electronic medical record (media tab). Please [...] Detected Not Detected 01/03/2018 9:[address] [facility] High Risk Human Papilloma Interp 01/03/2018 9:[address] [facility] Comment:High Risk Human Hank lloma Virus was Not Detected. Pathology/Cytolo gy MISCELLANEOUS SAMPLES / Unknown 12/30/2017 3:07 PM CDT 01/02/2018 12:[address] [facility] - 01/03/2018 9:10 AM CDT Nucleic acid isolated from the specimen was analyzed with a nucleic acid amplification test (FDA approved Gen-Probe HPV Assay) to detect high risk human papilloma virus (Types: 16, 18, 31, 33, 35, 39, 45, 51, 52, 56, 58, 59, 66, and 68). The reference range is Not Detected. Comment: These test results should not be used as the sole basis for clinical assessment and treatment of patients. These results should always be correlated with other available data (cytology, histology, and clinical information). Rancho Bernard MD LAB - MICROBIOLOGY ORDERABLES Fi nal Result Performing Organization Address City/State/[facility] de Phone Number [facility] [address] [phone] from Last 3 Months or Most Recently Relevant to Health Maintenance Insurance [employer] ANTHEM Care Teams Clinical Unit Coordinator Relationship Specialty Start Date End Date Patrick Coronado MD PCP - General 11/15/17
--- OUTSIDE RECORDS SUMMARY | 2024-11-12 09:11 | XMS_ITS ---
Author Organization [facility] Address [address] [place] [address] Care Team Providers Care Spray Dyer Name Role Phone Tiago Leblanc MD Unavailable [phone] Rusty Soares MD PhD Unavailable Rusty Bentley DO Primary Care Provider [phone] Active Problems Problem Noted Date Diagnosed Date Family history of colon cancer 01/30/2021 Overview (01/30/2021): Added automatically from request for surgery [id number] Melanoma of back 12/20/2020 Skin lesion 08/25/2020 Essential hypertension 06/23/2020 Assessment & Plan (06/23/2020 2:46 PM TABLE SAW OPERATOR): Blood pressure at time Type 2 diabetes mellitus wit hout complication, without long-term current use of insulin 03/17/2020 Assessment & Plan (06/23/2020 2:46 PM TABLE SAW OPERATOR): Seems to lost 10 lb. A1c 10.5. Will add Farxiga 5 mg daily Hyperlipidemia 03/17/2020 Assessment & Plan (06/23/2020 2:46 PM TABLE SAW OPERATOR): Lipid reviewed continue present Rx Pain [...]
[2024-11-12 13:48] LABS: Alanine Aminotransferase 48 U/L (6-35); Albumin Level 4.5 g/dL (3.5-5.1); Alkaline Phosphatase 86 U/L (38-126); Anion Gap 10 mmol/L (4-12); Aspartate Amino Transferase 64 U/L (14-36); Bilirubin,Total 0.5 mg/dL (0.2-1.3); Blood Urea Nitrogen 17 mg/dL (7-17); Calcium 9.6 mg/dL (8.4-10.2); Carbon Dioxide 25 mmol/L (22-30); Chloride 101 mmol/L (98-107); Estimated Glomerular Filt Rate 55; Glucose 318 mg/dL (65-110); Potassium 4.2 mmol/L (3.4-5.0); Sodium 136 mmol/L (137-145); Total Protein 7.3 g/dL (6.3-8.2)
[2024-11-12 14:51] LABS: Hemoglobin A1C 10.2 % (<5.7)
== END 2024-11-12 08:48 | disposition home or self-care (01) ==
LOC: ANHGOSHLAB 08:48
PROVIDERS: PCP Internal Medicine; Visit Provider Internal Medicine
DX: E11.65 Type 2 diabetes mellitus with hyperglycemia (principal)
CPT/HCPCS: 36415; 80053; 83036

== ENCOUNTER 2025-02-20 15:11 | Outpatient (CLI) | payer BC, SELFPAY ==
--- OUTSIDE RECORDS SUMMARY | 2025-02-20 15:54 | XMS_ITS | Clinical Summary ---
Author Organization [facility] Address [address] [place] [address] Care Team Providers Care Armoured Car Escort Name Role Phone Patrick Coronado MD Primary [...] 4:57 PM CDT Height 165.1 cm (5' 5) 01/31/2018 4:57 PM CDT Body Mass Index [...] COVID-19 Vaccine (1 - 2023-2 5 season) 2025 RSV Immunization or 60+ Years (1 - [...] to complete this topic Insurance Care Teams Armoured Car Escort Relationship Specialty Start Date End Date Patrick Coronado MD PCP - General INK JET OPERATOR 01/31/18
--- OUTSIDE RECORDS SUMMARY | 2025-02-20 15:54 | XMS_ITS | Encounter Summary ---
Author Organization [facility] Address [address] [place] [address] Phone Care Team Providers Care Firebreak Cutter Name Role Phone Tiago Leblanc MD Unavailable [phone] Rusty Soares MD PhD Unavailable No, Physician Primary Care Provider [phone] Rusty Bentley DO Unavailable Rusty Bentley DO Primary Care Provider [phone] Encounter Details Date Type Department Care Team (Late st Contact Info) Description 01/17/2023 Telephone [facility] Medicine Rheumatology [address] [facility] 5th [place] [address] [place] [address] Samantha Wilks CMA Social History Tobacco Use Types Packs/Day Years Used Date Smoking Tobacco: Every Day Cigarettes 0.5 33.7 Started: 1991 Smokeless Tobacco: Never Comments:Smoking History [...] on file Legal Sex Female 2:38 AM 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 Gender Identity Not on file Sexual Orientation Not on file documented as of this encounter Plan of Treatment Upcoming Encounters Date Type Department Care Team (Latest Contact Info) Description 03/11/2025 11:00 AM CDT Hospital Encounter [facility] [address] [facility] [address] [place] [address] Rody Leach MD [address] [place] [address] Abnormal gastrointestinal PET scan; Ulcer of gastric fundus, unspecified chronicity; History of malignant melanoma 03/11/2025 11:00 AM CDT - 03/11/2025 12:00 PM CDT Surgery [facility] [address] [facility] [address] [place] [address] Rody Leach MD [address] [place] [address] EGD +/- EUS te/oa interventional Scheduled Procedures Name Priority Associated Diagnoses Date/Ti me ESOPHAGOGASTRODUODENOSCOPY Open Access Abnormal gastrointestinal PET scan Ulcer of gastric fundus, unspecified chronicity History of malignant melanoma 03/11/2025 11:00 AM CDT ESOPHAGOGASTRODUODENOSCOPY Open Access Abnormal gastrointestinal positron emission tomography (PET) scan Ulcer of gastric fundus, unspecified chronicity documented as of this encounter Visit Diagnoses Not on filedocumented in this encounter Care Teams Firebreak Cutter Relationship Specialty Start Date End Date No, Physician PCP - General 10/22/22 04/24/23 Rusty Bentley DO PCP - General Internal Medicine 04/25/23 Tiago Leblanc MD [address] [facility] [address] [place] [address] Medical Oncologist/Residential Counselor Medical Oncology 02/02/21 Rusty Soares MD PhD [address] [facility] [address] [place] [address] Shipping Room Supervisor Dermatology 08/01/22 Rusty Bentley DO Internal Medicine 04/25/23 04/25/23 documented as of this encounter
--- OUTSIDE RECORDS SUMMARY | 2025-02-20 15:54 | XMS_ITS | Clinical Summary ---
Author Organization [facility] [employer] Address [facility] [facility] [place] [address] Care Team Providers Care Manager Analysis Name Role Phone Patrick Coronado MD Primary Care Provider Unavailabl e Source Comments [facility] [employer],non-owned Affiliates and Associated Physician Practices is amultiple site organization consisting of ambulatory clinics and hospital sitesin [place], [place], [place] and [place]. This disclosure is being madepursuant to the Care Everywhere program and may not contain all information available regarding this patient. 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 PRIOR: 2013 and 2011 [facility] now available BREAST PARENCHYMAL DENSITY: The breasts are heterogeneously dense, which may obscure small masses. RISK ASSESSMENT CALCULATION: Based on the information provided by your patient, her lifetime risk of breast cancer is average (<15%). Additional quantitative risk model data and patient history details have been scanned as a document/letter in [facility] electronic medical record (media tab). Please note [...] Detected Not Detected 01/03/2018 9:10 AM CDT [facility] High Risk Human Papilloma Interp 01/03/2018 9:10 AM CDT [facility] Comment:High Risk Human Hank lloma Virus was Not Detected. Pathology/Cytolo gy MISCELLANEOUS SAMPLES / Unknown 12/30/2017 3:07 PM CDT 01/02/2018 12:18 PM CDT Narrative [facility] - 01/03/2018 9:10 AM CDT [...] ORDERABLES Fi nal Result Performing Organization Address City/State/[facility] de Phone Number [facility] [address] [phone] from Last 3 Months or Most Recently Relevant to Health Maintenance Insurance [employer]THEM Care Teams Manager Analysis Relationship Specialty Start Date End Date Patrick Coronado MD PCP - General 11/15/17
--- OUTSIDE RECORDS SUMMARY | 2025-02-20 15:54 | XMS_ITS ---
Author Organization [facility] Address [address] [place] [address] Care Team Providers Care Gis Engineer Name Role Phone Tiago Leblanc MD Unavailable [phone] Rusty Soares MD PhD Unavailable Rusty Bentley DO Primary Care Provider [phone] Active Problems Problem Noted Date Diagnosed Date Abnormal gastrointestinal po sitron emission tomography (PET) scan 01/16/2025 Ulcer of gastric fundus 01/16/2025 Family history of colon cancer 01/30/2021 Overview (01/30/2021): Added automatically from request for surgery [id number] Melanoma of back 12/20/2020 Skin lesion 08/25/2020 Essential hypertension 06/23/2020 Assessment & Plan (06/23/2020 2:46 PM EXCHANGE OPERATOR): Blood pressure at time Type 2 diabetes mellitus wit hout complication, without long-term current use of insulin 03/17/2020 Assessment & Plan (06/23/2020 2:46 PM EXCHANGE OPERATOR): Seems to lost 10 lb. A1c 10.5. Will add Farxiga 5 mg daily Hyperlipidemia 03/17/2020 Assessment & Plan (06/23/2020 2:46 PM EXCHANGE OPERATOR): Lipid reviewed continue present Rx Pain [...]
--- OUTSIDE RECORDS SUMMARY | 2025-02-20 15:55 | XMS_ITS | Clinical Summary ---
Author Organization [facility] Address [address] [place] [address] Care Team Providers Care Life Skills Instructor Name Role Phone Tiago Leblanc MD Unavailable [phone] Rusty Soares MD PhD Unavailable [phone] Rusty Bentley DO Primary Care Provider [phone] Allergies No known active allergies Medications venlafaxine XR (EFFEXOR-XR) 150 mg 24 hr capsuleIndicat ions:Anxiety with Depression Take 1 capsule (150 mg total) by mouth every morning 8 Active glimepiride (AMARYL) 2 mg tabletIndicati ons:type 2 diabetes mellitus TAKE 1 TABLET (2 MG TOTAL) BY MOUTH 2 (TWO) TIMES A DAY 180 tablet 1 1 Active atorvastatin (LIPITOR) 20 mg tablet TAKE 1 TABLET BY MOUTH EVERY DAY 90 tablet 1 1 Active Additional Information Patient taking differently: Every morning, Reported on 11/16/2024 bisacodyl EC (DULCOLAX EC) 5 mg EC tabletIndicati ons:constipati on Take 2 tablets with 8oz glass of water as directed per prep instructions. 2 tablet 1 Active albuterol 2.5 mg /3 mL (0.083 %) nebulizer solution 1 Active metFORMIN (GLUCOPHAGE) 1,000 mg tablet TAKE 1 TABLET BY MOUTH TWICE A DAY 180 tablet 1 Active Farxiga 10 mg tablet TAKE 1 TABLET BY MOUTH EVERY DAY 90 tablet 2 Active albuterol HFA (PROVENTIL HFA,VENTOLIN HFA,PROAIR [...] mg total) by mouth daily 3 Active Ozempic 1 mg/dose (4 mg/3 mL) pen injector injection INJECT 1 MG (0.75 ML) SUBCUTANEOUSLY WEEKLY 5 Active Active Problems Problem Noted Date Diagnosed Date Abnormal gastrointestinal po sitron emission tomography (PET) scan 01/16/2025 Ulcer of gastric fundus 01/16/2025 Family history of colon cancer 01/30/2021 Overview (01/30/2021): Added automatically from request for surgery [id number] Melanoma of back 12/20/2020 Skin lesion 08/25/2020 Essential hypertension 06/23/2020 Assessment & Plan (06/23/2020 2:46 PM EXTENSION WORKER): Blood pressure at time Type 2 diabetes mellitus wit hout complication, without long-term current use of insulin 03/17/2020 Assessment & Plan (06/23/2020 2:46 PM EXTENSION WORKER): Seems to lost 10 lb. A1c 10.5. Will add Farxiga 5 mg daily Hyperlipidemia 03/17/2020 Assessment & Plan (06/23/2020 2:46 PM EXTENSION WORKER): Lipid reviewed continue present Rx Pain in the coccyx 10/18/2016 Chronic obstructive pulmonary disease 10/11/2013 Mass of breast 10/11/2013 Encounters Date Type Department Care Team Description 02/06/2025 Telephone [facility] Specialty Services [address] [place] [id number] Charlotte Hobbs, RN GI Preprocedure 01/16/2025 Telephone [facility] [address] [facility] [address] [place] [address] Emmy Brian RN 01/16/2025 Orders Only [facility] [facility] [address] [place] [address] Tiago Leblanc MD Abnormal gastrointestinal positron emission tomography (PET) scan (Primary Dx); Ulcer of gastric fundus, unspecified chronicity 01/16/2025 Telephone [facility]0 [facility] [address] [place] [address] Emmy Brian RN 01/15/2025 2:00 PM CDT Office Visit [facility] [address] [place] [address] [address] [place] [address] Dionne Acevedo NP Melanoma of back (HCC) 01/15/2025 12:45 PM CDT Lab [facility] at [address] [place] [address] Melanoma of back (HCC) 01/15/2025 10:46 AM CDT - 01/15/2025 11:59 PM CDT Hospital Encounter [facility] [address] [facility] [address] [place] [address] Melanoma of back (HCC) Discharge Disposition: Discharge to home or self care from Last 3 Months Immunizations Immunization Administration Dates Next Due Influenza, Quadrivalent, Spl it, Preservative Free, Intramuscular 02/17/2020,02/03/2019 Influenza, Trivalent, Preser vative Free, Intramuscular 03/20/2017,03/20/2016,03/22/2015 Influenza, Unspecified 07/15/2014 Pfizer SARS-CoV-2 Monovalent Vaccination (12+ Yrs) PURPLE 10/05/2020,09/14/2020 Pneumococcal Conjugate PCV 13 02/17/2020 Pneumococcal Polysaccharide PPV23 02/03/2019,02/2015 Surgical History Surgery Date Site/Laterality Comments CERVIX SURGERY after water skiing accident 1981 SKIN BIOPSY 12/01/2020 Left left lower back MELANOMA RESECTION 01/16/2021 Left Left lower back SENTINEL LYMPH NODE BIOPSY 01/16/2021 Medical History Medical History Date Comments Depression Suicide attempt Hx Other Medical 1982 water skiing ac cident Urinary incontinence Irritable bowel syndrome (IBS) Anemia Anxiety Arthritis Diabetes mellitus (HCC) Emphysema of lung Melanoma of back (HCC) 12/20/2020 Hypertension Family [...] Used Date Smoking Tobacco: Former Cigarettes 0.5 33.7 S tarted: 1991 Passive Smoke Exposure: Past Smokeless Tobacco: Never Comments:Smoking History Pac ks/day: [...] on file Legal Sex Female 2:38 AM EXTENSION WORKER Gender Identity Not on file Sexual Orientation Not on file Obstetrics History Last Filed Vital Signs Vital Sign Reading Time Taken Comments Blood Pressure 131/84 01/15/2025 2:01 PM CDT Pulse 71 01/15/2025 2:01 PM CDT Temperature 36.9 C (98.4 F) 01/15/2025 2:01 PM CDT Respiratory Rate 18 01/15/2025 2:01 PM CDT Oxygen Saturation 97% 01/15/2025 2:01 PM CDT Inhaled Oxygen Concentration - - Weight 103.5 kg (228 lb 2.8 oz) 01/15/2025 2:01 PM CDT Height 166.6 cm (5' 5.59) 11/16/2024 1 2:14 PM CDT Body Mass Index 37.29 11/16/2024 12:14 PM CDT Plan of Treatment Upcoming Encounters Date Type Department Care Team (Latest Contact Info) Description 03/11/2025 11:00 AM CDT Hospital Encounter [facility] [address] [place] [address] Rody Leach MD [address] [place] [address] Abnormal gastrointestinal PET scan; Ulcer of gastric fundus, unspecified chronicity; History of malignant melanoma 03/11/2025 11:00 AM CDT - 03/11/2025 12:00 PM CDT Surgery [facility] [address] [place] [address] Rody Leach MD [address] [place] [address] EGD +/- EUS te/oa interventional Scheduled Procedures Name Priority Associated Diagnoses Date/Ti me ESOPHAGOGASTRODUODENOSCOPY Open Access Abnormal gastrointestinal PET scan Ulcer of gastric fundus, unspecified chronicity History of malignant melanoma 03/11/2025 11:00 AM CDT ESOPHAGOGASTRODUODENOSCOPY Open Access Abnormal gastrointestinal positron emission tomography (PET) scan Ulcer of gastric fundus, unspecified chronicity Health Maintenance Due Date Last Done Comments [...] 10/26/2023 10/25/2022, 02/23/2021, 01/06/2018, Additional history exists Covid-19 Vaccine (3 - 2024-2 6 season) 2025 10/05/2020, 09/14/2020 Influenza Vaccine (#1) 2025 , 02/03/2019, 03/20/2017, Additional history exists Pneumococcal vaccine <65 (3 of 3 - PCV20 or PCV21) 02/16/2025 02/17/2020, 02/03/2019, 07/15/2014 eGFR 01/15/2026 01/15/2025, 07/07, 01/10/2024, Additional history exists Colon Cancer Screening-Colonoscopy 04/21/2031 04/21/2021, 04/19/2016, 08/18/2012 Colon Cancer Screening-CT Colonography Discontinued 04/21/2021, 04/19/2016, 08/18/2012 Colon Cancer Screening-DNA Stool Discontinued 04/21/2021, 04/19/2016, 08/18/2012 Colon Cancer Screening-FIT Discontinued 04/21, 04/19/2016, 08/18/2012 Colon Cancer Screening-Sigmoidoscopy Discontinued 04/21/2021, 04/19/2016, 08/18/2012 Procedures Procedure Name Priority Date/Time Associated Diagnosis Comments EGFR Routine 01/15/2025 12:23 PM CDT Melanoma of back (HCC) DIFFERENTIAL AUTO Routine 01/15/2025 12:23 PM CDT Melanoma of back (HCC) CBC WITH AUTO DIFFERENTIAL Routine 01/15/2025 12:23 PM CDT Melanoma of back (HCC) LACTATE DEHYDROGENASE Routine 01/15/2025 12:23 PM CDT Melanoma of back (HCC) COMPREHENSIVE METABOLIC PANEL Routine 01/15/2025 12:23 PM CDT Melanoma of back (HCC) PET/CT FDG SKULL TO THIGH Schedule Routine, Read Routine (OP Routine) 01/15/2025 12:09 PM CDT Melanoma of back (HCC) SCREENING MAMMOGRAM BILATERAL W YONI Schedule Routine, Read Routine (OP Routine) 10/25/2022 8:36 AM CDT Screening mammogram, encounter for COLONOSCOPY 04/21/2021 1:17 PM EXTENSION WORKER POCT HEMOGLOBIN A1C Routine 03/09/2021 1 :58 PM CDT Type 2 diabetes mellitus without complication, without long-term current use of insulin (HCC) Hyperlipidemia, unspecified hyperlipidemia type Essential hypertension POCT LIPID PANEL Routine 12/01/2020 2:40 PM CDT Hyperlipidemia, unspecified hyperlipidemia type from Last 3 Months or Most Recently Relevant to Health Maintenance Results * eGFR (01/15/2025 12:23 PM CDT) eGFR 74 >=60 mL/min/1. 73 m2 Comment: Interpretive Data [...] was last reviewed 2021. Testing performed by: [facility], [address] [place] [address] Blood 01/15/2025 12:2 3 PM CDT 01/15/2025 12:47 PM CDT us Pepper STRONG LAB BLOOD ORDERABLES Final Result [facility] [address] [facility]. Department of Laboratories [place], [place] [id number] * Differential, auto (01/15/2025 12:23 PM CDT) Neutrophil abs 3.87 1.50 - 6.50 K/cumm Comment:Testing performed by : [facility], [address] [place] [address] Imm gran abs 0.02 0.00 - 0.10 K/cumm [facility] Comment:Testing performed by : [facility], [address] [place] [address] Lymphocyte abs 2.07 0.80 - 3.30 K/cumm [facility] Comment:Testing performed by : [facility], [address] [place] [address] Monocyte abs 0.51 0.20 - 0.80 K/cumm [facility] Comment:Testing performed by : [facility], [address] [place] [address] Eosinophil abs 0.08 0.00 - 0.50 K/cumm [facility] Comment:Testing performed by : [facility], [address] [place] [address] Basophil abs 0.02 0.00 - 0.10 K/cumm [facility] Comment:Testing performed by : [facility], [address] [place] [address] Neutrophil pct 58.9 % [facility] Comment: Interpretive Data Percent cell count reference ranges are not reported, since discordance with absolute values may lead to misinterpretation of CBC data. Current Interpretive Data was last revised on 2017. Testing performed by: [facility], [address] [place] [address] Imm gran pct 0.3 % [facility] Comment: Interpretive Data Percent cell count reference ranges are not reported, since discordance with absolute values may lead to misinterpretation of CBC data. Current Interpretive Data was last revised on 2017. Testing performed by: [facility], [facility], [address] [place] [address] Lymphocyte pct 31.5 % [facility] Comment: Interpretive Data Percent cell count reference ranges are not reported, since discordance with absolute values may lead to misinterpretation of CBC data. Current Interpretive Data was last revised on 2017. Testing performed by: [facility], [facility], [address] [place] [address] Monocyte pct 7.8 % [facility] Comment: Interpretive Data Percent cell count reference ranges are not reported, since discordance with absolute values may lead to misinterpretation of CBC data. Current Interpretive Data was last revised on 2017. Testing performed by: [facility], [facility], [address] [place] [address] Eosinophil pct 1.2 % [facility] Comment: Interpretive Data Percent cell count reference ranges are not reported, since discordance with absolute values may lead to misinterpretation of CBC data. Current Interpretive Data was last revised on 2017. Testing performed by: [facility], [facility], [address] [place] [address] Basophil pct 0.3 % [facility] Comment: Interpretive Data Percent cell count reference ranges are not reported, since discordance with absolute values may lead to misinterpretation of CBC data. Current Interpretive Data was last revised on 2017. Testing performed by: [facility], [facility], [address] [place] [address] Blood 01/15/2025 12:2 3 PM CDT 01/15/2025 12:29 PM CDT us Pepper STRONG LAB BLOOD ORDERABLES Final Result [facility] [address] Department [place] [address] * CBC with auto differential (01/15/2025 12:23 PM CDT) WBC 6.57 3.80 - 9.90 K/cumm Comment:Testing performed by : [place] [address] [place] [address] Hgb 12.8 11.9 - 15.5 g/dL [facility] Comment:Testing performed by : [place] [address] [place] [address] Hct 39.0 35.6 - 45.5 % [facility] Comment:Testing performed by : [place] [address] [place] [address] Plt 177 150 - 400 K/cumm [facility] Comment:Testing performed by : [place] [address] [place] [address] MPV 10.2 9.1 - 12.3 fL [facility] Comment:Testing performed by : [place] [address] [place] [address] RBC 4.43 3.90 - 5.20 M/cumm [facility] Comment:Testing performed by : [place] [address] [place] [address] MCV 88.0 81.3 - 96.4 fL [facility] Comment:Testing performed by : [place] [address] [place] [address] MCH 28.9 27.1 - 33.3 pg [facility] Comment:Testing performed by : [address] [place] [address] MCHC 32.8 32.3 - 35.7 g/dL [facility] Comment:Testing performed by : [place] [address] [place] [address] RDW CV 13.5 11.1 - 14.9 % [facility] Comment:Testing performed by : [facility], [facility], [address] [place] [address] RDW SD 43.8 35.7 - 48.1 fL [facility] Comment:Testing performed by : [facility], [facility], [address] [place] [address] ANC Prelim 3.87 1.50 - 6.50 K/cumm [facility] Comment: Interpretive Data The rapid ANC is a preliminary automated count and may vary from the final ANC (Neut Abs) reported in the WBC differential that follows. Current interpretive data was last revised 2024. Testing performed by: [facility], [facility], [address] [place] [address] Blood 01/15/2025 12:2 3 PM CDT 01/15/2025 12:29 PM CDT us Pepper STRONG LAB BLOOD ORDERABLES Final Result [facility] [address] [facility] [facility] [employer] [place] [address] * Lactate dehydrogenase (LD) (01/15/2025 12:23 PM CDT) Lactate dehydrogenase (LDH) 189 100 - 250 Units/L Comment:Testing performed by : [facility], [address] [place] [address] Blood 01/15/2025 12:2 3 PM CDT 01/15/2025 12:47 PM CDT Pepper STRONG LAB BLOOD ORDERABLES Final Result [facility] [address] [facility]. [facility] [employer] [place] [address] * Comprehensive metabolic panel (01/15/2025 12:23 PM CDT) Sodium 141 135 - 145 mmol/L Comment:Testing performed by : [facility], [address], [place] [address] Potassium, pl 4.0 3.3 - 4.9 mmol/L [facility] Comment:Testing performed by : [facility], [address], [place] [address] Chloride 104 97 - 110 mmol/L [facility] Comment:Testing performed by : [facility], [address], [place] [address] CO2 24 22 - 32 mmol/L [facility] Comment:Testing performed by : [facility], [address], [place] [address] Anion gap 13 2 - 15 mmol/L [facility] Comment:Testing performed by : [facility], [address], [place] [address] BUN 11 6 - 25 mg/dL [facility] Comment:Testing performed by : [facility], [address], [place] [address] Creatinine 0.88 0.60 - 1.10 mg/dL [facility] Comment:Testing performed by : [facility], [address], [place] [address] Glucose 107 70 - 199 mg/dL [facility] Comment: [...] was last revised 2022. Testing performed by: [facility], [address], [place] [address] Calcium 9.2 8.5 - 10.3 mg/dL [facility] Comment:Testing performed by : [facility], [address], [place] [address] Bilirubin, total 0.4 0.1 - 1.2 mg/dL [facility] Comment:Testing performed by : [facility], [address], [place] [address] Protein, pl 6.9 6.5 - 8.5 g/dL [facility] Comment:Testing performed by : [facility], [address], [place] [address] Albumin 4.3 3.5 - 5.0 g/dL [facility] Comment:Testing performed by : [facility], [address], [place] [address] Alk phos 67 40 - 130 Units/L [facility] Comment:Testing performed by : [facility], [address], [place] [address] ALT 26 7 - 45 Units/L [facility] Comment:Testing performed by : [facility], [address], [place] [address] AST 21 10 - 45 Units/L [facility] Comment:Testing performed by : [facility], [address], [place] [address] Blood 01/15/2025 12:2 3 PM CDT 01/15/2025 12:47 PM CDT [facility] STR[facility] LAB BLOOD ORDERABLES Final Result [facility] [address] Department [place] [address] * PET/CT FDG Skull to Thigh (01/15/2025 12:09 PM CDT) Anatomical Region Laterality Modality N/A Positron Emissio n Tomography (PET) 01/16/2025 10:1 2 AM CDT Impressions 01/16/2025 10:36 AM CDT 1. New focal FDG uptake in the gastric fundus,, likely representing a site of focal inflammation/ulceration. This can be further evaluated with endoscopy and patient's symptoms. Recommended attention on follow-up imaging. 2. Otherwise, no FDG PET/CT evidence of recurrent or progressive disease. Dictated by: Chaz Waddell MD The radiology attending physician has personally reviewed this study, and had reviewed and/or edited this written report and agrees with it. Electronically signed by: Donis Hooper DO Narrative 01/16/2025 10:36 AM CDT EXAMINATION: TUMOR FDG-PET/CT IMAGING DATE OF STUDY: 01/15/2025 SCANNER: RADIOPHARMACEUTICAL: 15.78 mCi F-18 Fluorodeoxyglucose (FDG) i.v. Injection site: Right antecubital HISTORY: 64-year-old woman with history of left mid back melanoma post wide local excision and sentinel lymph node biopsy in 2020 with positive shai metastatic disease, currently on observation. The study is requested for follow-up. Subsequent treatment strategy. TECHNIQUE: The patient's fasting blood glucose level, measured by glucometer before injection of FDG, was 151 mg/dL. After intravenous administration of FDG, noncontrast CT images were obtained for attenuation correction and for fusion with emission PET images to allow for anatomical localization of PET findings. Emission PET images were then obtained. The study was interpreted on the Finalta workstation. The mean liver SUV (reported for quality control lead purposes) is 2.8. The total scanned area was skull vertex to knees. Images of the body were obtained starting 50 minutes after injection of tracer. All reported SUVs are maximum SUVs, unless otherwise specified. COMPARISON: FDG PET/CT 07/17/2024 and 01/10/2024 DESCRIPTORS OF LESION FDG AVIDITY: Minimal: <= blood pool Mild: > blood pool and <= liver Moderate: > liver and <= 2x SUVmax liver Moderate to marked: >2x SUVmax liver and <= 3x SUVmax liver Marked: > 3x SUVmax liver FINDINGS: Focal moderate FDG uptake in the gastric fundus on axial image 165 with SUV of 5.5, , new from FDG PET/CT 07/17/2024. Primary diagnostic considerations for this finding include ulcer or local inflammation. Metastatic disease is significantly less likely. Diffuse and intense colonic FDG uptake is likely metformin related. Additional CT findings: Left knee osteoarthritis. Unchanged right lower lobe pulmonary nodule. Coronary and aortic atherosclerosis. Degenerative spine disease. Fat-containing left inguinal hernia. Small fat-containing umbilical hernia Procedure Note Donis Hooper, DO - 01/16/2025 EXAMINATION: TUMOR FDG-PET/CT IMAGING DATE OF STUDY: 01/15/2025 SCANNER: RADIOPHARMACEUTICAL: 15.78 mCi F-18 Fluorodeoxyglucose (FDG) i.v. Injection site: Right antecubital HISTORY: 64-year-old woman with history of left mid back melanoma post wide local excision and sentinel lymph node biopsy in 2020 with positive shai metastatic disease, currently on observation. The study is requested for follow-up. Subsequent treatment strategy. TECHNIQUE: The patient's fasting blood glucose level, measured by glucometer before injection of FDG, was 151 mg/dL. After intravenous administration of FDG, noncontrast CT images were obtained for attenuation correction and for fusion with emission PET images to allow for anatomical localization of PET findings. Emission PET images were then obtained. The study was interpreted on the Finalta workstation. The mean liver SUV (reported for quality control lead purposes) is 2.8. The total scanned area was skull vertex to knees. Images of the body were obtained starting 50 minutes after injection of tracer. All reported SUVs are maximum SUVs, unless otherwise specified. COMPARISON: FDG PET/CT 07/17/2024 and 01/10/2024 DESCRIPTORS OF LESION FDG AVIDITY: Minimal: <= blood pool Mild: > blood pool and <= liver Moderate: > liver and <= 2x SUVmax liver Moderate to marked: >2x SUVmax liver and <= 3x SUVmax liver Marked: > 3x SUVmax liver FINDINGS: Focal moderate FDG uptake in the gastric fundus on axial image 165 with SUV of 5.5, , new from FDG PET/CT 07/17/2024. Primary diagnostic considerations for this finding include ulcer or local inflammation. Metastatic disease is significantly less likely. Diffuse and intense colonic FDG uptake is likely metformin related. Additional CT findings: Left knee osteoarthritis. Unchanged right lower lobe pulmonary nodule. Coronary and aortic atherosclerosis. Degenerative spine disease. Fat-containing left inguinal hernia. Small fat-containing umbilical hernia IMPRESSION: 1. New focal FDG uptake in the gastric fundus,, likely representing a site of focal inflammation/ulceration. This can be further evaluated with endoscopy and patient's symptoms. Recommended attention on follow-up imaging. 2. Otherwise, no FDG PET/CT evidence of recurrent or progressive disease. Dictated by: Chaz Waddell MD The radiology attending physician has personally reviewed this study, and had reviewed and/or edited this written report and agrees with it. Electronically signed by: Donis Hooper DO Pepper STRONG IMG PET PROCEDURES Final R esult * Screening Mammogram Bilateral W Yoni (10/25/2022 8:36 AM CDT) Anatomical Region Laterality Modality Breast Bilateral Mammography Narrative 10/26/2022 1:53 PM CDT Mammogram Technique: Bilateral Digital Breast Tomosynthesis, Bilateral C-view 2D Screening mammogram. Views obtained: bilateral craniocaudal and bilateral mediolateral oblique. Computer Aided Detection was performed. Mammogram Findings: The present examination has been compared to prior imaging studies performed at [facility] on 10/11/2013 and 02/23/2021. The breasts are [...] compared to prior imaging studies performed at [facility] on 10/11/2013 and 02/23/2021. The breasts are heterogeneously dense, which may obscure small masses. There is no suspicious abnormality in either breast. Impression: There is no mammographic evidence of malignancy. Annual screening mammography is recommended. OVERALL FINAL ASSESSMENT: BI-RADS CATEGORY 1: Negative. us Self Screening Mammogram IMG MAMMO PROCEDURES Fi nal Result * COLONOSCOPY (04/21/2021 1:17 PM EXTENSION WORKER) Anatomical Region Laterality Modality Other Narrative Procedure Note Francesca Soares MD PhD - 04/21/2021 1:17 PM CST [facility] Patient Name: Leticia Baugh Procedure Date: 04/21/2021 1:17 PM Date of : 1960 Admit Type: Outpatient Age: 60 Gender: Female Attending MD: Francesca Soares MD,PHD Room: [facility] ENDOSCOPY ROOM 8 Note Status: Finalized [...] scope was passed under direct vision.The CF [id number] [id number] endoscope was introduced through the anus and advanced to the terminal ileum. The colonoscopy was performed without difficulty. The patient tolerated the procedure well. The qualityof the bowel preparation was excellent. The quality of the bowel preparation was evaluated using the BBPS ([place] Bowel Preparation Scale) with scores of:Right Colon [...] On: 04/21/2021 1:17 PM Recognized by the [employer] for promoting quality [...] Most Recently Relevant to Health Maintenance Insurance [employer] BLUE ACCESS OOS ANTHEM ACCESS BLUE ACCESS OOS * Guarantor: [employer] Account Type Relation to Patient Date of Phone Billing Address Workers Comp Employer WORKERS COMPENSATION GENERIC Advance Directives For more information, please contact: [phone] * Full Code (Latest Code Status on File) Date Activated Date Inactivated Comments 04/21/2021 12:30 PM 04/21/2021 6:41 PM Care Teams Life Skills Instructor Relationship Specialty Start Date End Date Rusty Bentley DO [address] [facility] [address] [place] [address] PCP - General Internal Medicine 04/25/23 Tiago Leblanc MD [address] [facility] [address] [place] [address] Medical Oncologist/Spline Rolling Machine Job Setter Medical Oncology 02/02/21 Rusty Soares MD PhD [address] [facility] [address] [place] [address] Optical Lathe Operator Dermatology 08/01/22
[2025-02-20 18:23] LABS: Hematocrit 38.0 % (37.0-47.0); Hemoglobin 12.5 g/dL (12.0-15.0); Immature Granulocyte Percent A 0.3 % (0-0.5); Lymphocytes Absolute Auto 2.35 K/mm3 (0.9-3.2); Mean Corpuscular HGB Conc 32.9 g/dl (32-36); Mean Corpuscular Hemoglobin 29.3 pg (26-34); Mean Corpuscular Volume 89.2 fl (80-100); Nucleated Red Blood Cells Absolute Auto 0.000 K/mm3 (0.0-0.012); Nucleated Red Blood Cells Perc 0.0 % (0.0-0.2); Platelet Count Result 181 k/mm3 (150-375); Red Blood Count 4.26 M/mm3 (4.2-5.4); White Blood Count 6.8 K/mm3 (4.5-10.0)
[2025-02-20 18:42] LABS: Alanine Aminotransferase 35 U/L (6-35); Albumin Level 4.1 g/dL (3.5-5.1); Alkaline Phosphatase 71 U/L (38-126); Anion Gap 7 mmol/L (4-12); Aspartate Amino Transferase 44 U/L (14-36); Bilirubin,Total 0.3 mg/dL (0.2-1.3); Blood Urea Nitrogen 18 mg/dL (7-17); Calcium 9.2 mg/dL (8.4-10.2); Carbon Dioxide 25 mmol/L (22-30); Chloride 105 mmol/L (98-107); Estimated Glomerular Filt Rate 47; Glucose 202 mg/dL (65-110); Potassium 3.9 mmol/L (3.4-5.0); Sodium 137 mmol/L (137-145); Total Protein 7.0 g/dL (6.3-8.2)
[2025-02-20 18:56] LABS: Hemoglobin A1C 7.5 % (<5.7)
== END 2025-02-20 15:12 | disposition home or self-care (01) ==
LOC: ANHGOSHLAB 15:12
PROVIDERS: PCP Internal Medicine; Visit Provider Internal Medicine
DX: R74.01 Elevation of levels of liver transaminase levels (principal); E11.65 Type 2 diabetes mellitus with hyperglycemia
CPT/HCPCS: 36415; 80053; 83036; 85025